=== PATIENT | female | born 1945 | race Caucasian/White ===

== ENCOUNTER 2017-10-09 12:48 | Observation (INO) | payer MEDICARE, OTHER ==
[2017-10-09] MEDS ORDERED: ASPIRIN 81 MG PO STA (14:15)
[2017-10-09] MEDS ORDERED: NITROGLYCERIN OINT 1 INCH/GM PACKET TOPICAL STA (14:15)
--- NOTE | 2017-10-09 14:35 | ED ---
General Adult HPI - General Chief complaint: Chest Pain Stated complaint: adnormal EKG-sent by Dr. Quinones Seen by Provider: 10/09/17 13:45 Source: patient, RN notes reviewed Mode of arrival: ambulatory Limitations: no limitations - History of Present Illness Initial comments: This is a 72-year-old female who presents emergency Department complaining of intermittent left-sided chest pain. Patient states sometimes the chest pain is so bad it radiates to her under her arm and makes her short of breath. Patient states she also gets diaphoretic in the head. Patient denies any nausea. Patient denies any vomiting or diarrhea. Patient states she is a smoker and she does have high blood pressure. Patient states she also had 2 stents in the past. Patient denies any recent fever chills. Patient states she has an occasional cough but that is typical for her. Patient denies any abdominal pain patient denies any recent injury or trauma. - Related Data Home Medications Medication Instructions Recorded Confirmed ALPRAZolam [Xanax] 0.5 mg PO BID PRN 10/09/17 10/09/17 Atenolol [Tenormin] 50 mg PO HS 10/09/17 10/09/17 Lisinopril [Zestril] 10 mg PO DAILY 10/09/17 10/09/17 Nitroglycerin Sl Tabs [Nitrostat] 0.4 mg SUBLINGUAL Q5M PRN 10/09/17 10/09/17 Simvastatin [Zocor] 40 mg PO HS 10/09/17 10/09/17 amLODIPine [Norvasc] 5 mg PO DAILY 10/09/17 10/09/17 Allergies Allergy/AdvReac Type Severity Reaction Status Date / Time Sulfa (Sulfonamide Allergy Unknown Verified 10/09/17 14:32 Antibiotics) Childhood Review of Systems ROS Statement: Those systems with pertinent positive or pertinent negative responses have been documented in the HPI. ROS Other: All systems not noted in ROS Statement are negative. Past Medical History Past Medical History: Coronary Artery Disease (CAD), Hyperlipidemia, Hypertension Additional Past Medical History / Comment(s): breast ca History of Any Multi-Drug Resistant Organisms: None Reported Past Surgical History: Bladder Surgery, Cholecystectomy, Heart Catheterization With Stent, Hysterectomy Additional Past Surgical History / Comment(s): right mastectomy, left lumpectomy Past Psychological History: No Psychological Hx Reported Smoking Status: Current every day smoker Past Alcohol Use History: None Reported Past Drug Use History: None Reported General Exam - General Exam Comments Initial Comments: GENERAL: Patient is well-developed and well-nourished. Patient is nontoxic and well- hydrated and is in mild distress. ENT: Neck is soft and supple. No significant lymphadenopathy is noted. Oropharynx is clear. Moist mucous membranes. Neck has full range of motion without eliciting any pain. EYES: The sclera were anicteric and conjunctiva were pink and moist. Extraocular movements were intact and pupils were equal round and reactive to light. Eyelids were unremarkable. PULMONARY: Unlabored respirations. Good breath sounds bilaterally. No audible rales rhonchi or wheezing was noted. CARDIOVASCULAR: There is a regular rate and rhythm without any murmurs gallops or rubs. ABDOMEN: Soft and nontender with normal bowel sounds. No palpable organomegaly was noted. There is no palpable pulsatile mass. SKIN: Skin is clear with no lesions or rashes and otherwise unremarkable. NEUROLOGIC: Patient is alert and oriented x3. Cranial nerves II through XII are grossly intact. Motor and sensory are also intact. Normal speech, volume and content. Symmetrical smile. MUSCULOSKELETAL: Normal extremities with adequate strength and full range of motion. No lower extremity swelling or edema. No calf tenderness. LYMPHATICS: No significant lymphadenopathy is noted PSYCHIATRIC: Normal psychiatric evaluation. Limitations: no limitations (Normal physical) Course Vital Signs 10/09/17 10/09/17 13:48 14:52 Temperature 98 F Pulse Rate 67 65 Respiratory 18 18 Rate Blood Pressure 137/73 148/64 O2 Sat by Pulse 93 L 94 L Oximetry Medical Decision Making - Medical Decision Making EKG shows normal sinus rhythm at a rate of 65 bpm RI interval is 162 QRS is 140 QTC is 470 QTC is 452. Patient's EKG shows no ST segment elevation or depression Chest x-ray shows no acute abnormality. I started the patient heparin because of her intermittent episodes of chest pain which are consistent with unstable angina. I spoke with [facility] hospitalist I admitted the patient and I wrote admitting orders and consult cardiology. - Lab Data Result diagrams: 10/09/17 14:05 10/09/17 14:05 Lab Results 10/09/17 10/09/17 10/09/17 Range/Units 14:05 14:05 14:05 WBC 6.2 (3.8-10.6) k/uL RBC 4.78 (3.80-5.40) m/uL Hgb 14.5 (11.4-16.0) gm/dL Hct 44.4 (34.0-46.0) % MCV 92.9 (80.0-100.0) fL MCH 30.3 (25.0-35.0) pg MCHC 32.6 (31.0-37.0) g/dL RDW 13.3 (11.5-15.5) % Plt Count 282 (150-450) k/uL Neutrophils % 59 % Lymphocytes % 29 % Monocytes % 5 % Eosinophils % 4 % Basophils % 0 % Neutrophils # 3.7 (1.3-7.7) k/uL Lymphocytes # 1.8 (1.0-4.8) k/uL Monocytes # 0.3 (0-1.0) k/uL Eosinophils # 0.2 (0-0.7) k/uL Basophils # 0.0 (0-0.2) k/uL PT (9.0-12.0) sec INR (<1.2) APTT (22.0-30.0) sec Sodium 142 (137-145) mmol/L Potassium 4.2 (3.5-5.1) mmol/L Chloride 111 H (98-107) mmol/L Carbon Dioxide 23 (22-30) mmol/L Anion Gap 8 mmol/L BUN 13 (7-17) mg/dL Creatinine 0.60 (0.52-1.04) mg/dL Est GFR (CKD-EPI)AfAm >90 (>60 ml/min/1.73 sqM) Est GFR (CKD-EPI)NonAf >90 (>60 ml/min/1.73 sqM) Glucose 88 (74-99) mg/dL Calcium 9.7 (8.4-10.2) mg/dL Magnesium 1.8 (1.6-2.3) mg/dL Total Bilirubin 0.4 (0.2-1.3) mg/dL AST 19 (14-36) U/L ALT 33 (9-52) U/L Alkaline Phosphatase 84 (38-126) U/L Total Creatine Kinase 59 (30-135) U/L CK-MB (CK-2) 1.7 (0.0-2.4) ng/mL CK-MB (CK-2) Rel Index 2.9 Troponin I <0.012 (0.000-0.034) ng/mL Total Protein 6.9 (6.3-8.2) g/dL Albumin 4.2 (3.5-5.0) g/dL 10/09/17 Range/Units 14:05 WBC (3.8-10.6) k/uL RBC (3.80-5.40) m/uL Hgb (11.4-16.0) gm/dL Hct (34.0-46.0) % MCV (80.0-100.0) fL MCH (25.0-35.0) pg MCHC (31.0-37.0) g/dL RDW (11.5-15.5) % Plt Count (150-450) k/uL Neutrophils % % Lymphocytes % % Monocytes % % Eosinophils % % Basophils % % Neutrophils # (1.3-7.7) k/uL Lymphocytes # (1.0-4.8) k/uL Monocytes # (0-1.0) k/uL Eosinophils # (0-0.7) k/uL Basophils # (0-0.2) k/uL PT 9.8 (9.0-12.0) sec INR 1.0 (<1.2) APTT 23.5 (22.0-30.0) sec Sodium (137-145) mmol/L Potassium (3.5-5.1) mmol/L Chloride (98-107) mmol/L Carbon Dioxide (22-30) mmol/L Anion Gap mmol/L BUN (7-17) mg/dL Creatinine (0.52-1.04) mg/dL Est GFR (CKD-EPI)AfAm (>60 ml/min/1.73 sqM) Est GFR (CKD-EPI)NonAf (>60 ml/min/1.73 sqM) Glucose (74-99) mg/dL Calcium (8.4-10.2) mg/dL Magnesium (1.6-2.3) mg/dL Total Bilirubin (0.2-1.3) mg/dL AST (14-36) U/L ALT (9-52) U/L Alkaline Phosphatase (38-126) U/L Total Creatine Kinase (30-135) U/L CK-MB (CK-2) (0.0-2.4) ng/mL CK-MB (CK-2) Rel Index Troponin I (0.000-0.034) ng/mL Total Protein (6.3-8.2) g/dL Albumin (3.5-5.0) g/dL Disposition Clinical Impression: Unstable angina pectoris Disposition: ADMITTED IP TO THIS HOSP Referrals: Rosemary Raphael MD [Primary Care Provider] - 1-2 days Time of Disposition: 16:06
[2017-10-09 14:37] LABS: Basophils % (A) 0 %; Eosinophils # (A) 0.2 k/uL (0-0.7); Eosinophils % (A) 4 %; HCT 44.4 % (34.0-46.0); HGB 14.5 gm/dL (11.4-16.0); Lymphocytes # (A) 1.8 k/uL (1.0-4.8); Lymphocytes % (A) 29 %; MCH 30.3 pg (25.0-35.0); MCHC 32.6 g/dL (31.0-37.0); MCV 92.9 fL (80.0-100.0); Mean Platelet Volume 6.3; Monocytes # (A) 0.3 k/uL (0-1.0); Monocytes % (A) 5 %; Neutrophils # (A) 3.7 k/uL (1.3-7.7); Neutrophils % (A) 59 %; Platelet Count 282 k/uL (150-450); RBC 4.78 m/uL (3.80-5.40); RDW 13.3 % (11.5-15.5); WBC 6.2 k/uL (3.8-10.6)
[2017-10-09 14:41] LABS: Partial Thromboplastin Time 23.5 sec (22.0-30.0); Prothrombin Time 9.8 sec (9.0-12.0)
[2017-10-09 14:48] LABS: ALT 33 U/L (9-52); AST 19 U/L (14-36); Albumin 4.2 g/dL (3.5-5.0); Alkaline Phosphatase 84 U/L (38-126); Anion Gap 8 mmol/L; Blood Urea Nitrogen 13 mg/dL (7-17); Calcium 9.7 mg/dL (8.4-10.2); Carbon Dioxide 23 mmol/L (22-30); Chloride 111 mmol/L (98-107); Glucose 88 mg/dL (74-99); Magnesium 1.8 mg/dL (1.6-2.3); Potassium 4.2 mmol/L (3.5-5.1); Sodium 142 mmol/L (137-145); Total Bilirubin 0.4 mg/dL (0.2-1.3); Total Protein 6.9 g/dL (6.3-8.2)
[2017-10-09 14:53] LABS: Creatine Kinase 59 U/L (30-135)
--- NOTE | 2017-10-09 14:56 | XR ---
EXAMINATION TYPE: XR chest 2V DATE OF EXAM: 10/09/2017 COMPARISON: 03/25/2014 HISTORY: 72-year-old female with chest pain TECHNIQUE: PA and lateral views FINDINGS: Heart upper limits of normal in size. Aorta and pulmonary vasculature within normal limits. Mild inte rstitial prominence has chronic appearance. Calcified granuloma right upper lobe unchanged. No consol idation or pleural effusion. Moderate degenerative disc disease throughout. IMPRESSION: Chronic changes with a calcified right upper lobe granuloma. No acute process seen.
[2017-10-09 15:06] LABS: Creatine Kinase MB 1.7 ng/mL (0.0-2.4); Troponin I <0.012 ng/mL (0.000-0.034)
[2017-10-09] MEDS ORDERED: HEPARIN SODIUM,PORCINE 5,000 UNIT/ML 1 ML VIAL IV ONE (15:58)
[2017-10-09] MEDS ORDERED: HEPARIN SOD,PORK IN 0.45% NACL 25,000 UNIT in 0.45% NACL 1 500ML.BAG IV SCH (16:00)
[2017-10-09] MEDS ORDERED: NITROGLYCERIN SL TABS 0.4 MG TAB SUBLINGUAL PRN (16:06)
[2017-10-09] MEDS: NITROGLYCERIN OINT 1 INCH/GM PACKET TOPICAL SCH (19:33)
[2017-10-09 22:50] LABS: Creatine Kinase 63 U/L (30-135)
[2017-10-09 23:03] LABS: Creatine Kinase MB 1.8 ng/mL (0.0-2.4); Troponin I <0.012 ng/mL (0.000-0.034)
[2017-10-10] MEDS ORDERED: ALPRAZolam 0.5 MG TAB PO PRN (00:02)
[2017-10-10] MEDS ORDERED: TEMAZEPAM 15 MG CAP PO PRN (00:03)
[2017-10-10] MEDS ORDERED: ACETAMINOPHEN TAB 500 MG TAB PO PRN (00:03)
[2017-10-10] MEDS ORDERED: HYDROcodone/APAP 5-325MG 1 EACH TAB PO PRN (00:03)
--- NOTE | 2017-10-10 01:29 | HP ---
HISTORY AND PHYSICAL DATE OF SERVICE: 10/09/2017 CHIEF COMPLAINTS: Chest pain. HISTORY OF PRESENT ILLNESS: This 79-year-old woman with a past medical history of CAD, hypertension, hyperlipidemia, history of breast cancer, being followed by Dr. Raphael in the outpatient setting, was complaining of chest pain for the last several days. Patient had pain on and off in the left side of the chest under the breast and radiated to the left axilla. The patient had one episode of diaphoresis also. The patient came to [facility] and was admitted for further evaluation and treatment. The cardiac enzymes are negative so far. The initial EKG showed wide-complex QRSs. The patient had a previous history of 2 stents also. There is no history of fevers or rigors. No history of headache, loss of consciousness, or seizures. PAST MEDICAL HISTORY: History of CAD stent, hypertension, hyperlipidemia, history of breast cancer. HOME MEDICATIONS: 1. Norvasc 5 mg p.o. daily. 2. Zocor 40 mg at bedtime. 3. Nitrostat 0.4 mg p.r.n. 4. Zestril 10 mg p.o. daily. 5. Tenormin 50 mg at bedtime. 6. Xanax 0.5 mg p.o. b.i.d. p.r.n. ALLERGIES: SULFA. FAMILY HISTORY: No history of heart disease or strokes in the family. SOCIAL HISTORY: No history of alcohol. History of current smoking, less than a pack daily. REVIEW OF SYSTEMS: ENT: No diminished vision. CARDIOVASCULAR: As mentioned earlier. RESPIRATORY SYSTEM: As mentioned earlier. GI: No nausea. : No dysuria. NERVOUS SYSTEM: No numbness or weakness. ALLERGY: No asthma or hayfever. MUSCULOSKELETAL: As mentioned earlier. ENDOCRINE: No history of diabetes or hypothyroidism. CONSTITUTIONAL: As mentioned earlier. PSYCHIATRY: As mentioned earlier. PHYSICAL EXAM: Patient is alert, oriented x3. Pulse 68, blood pressure 132/60, respiration 18, temperature 98.4, pulse ox 98% on 2 L. HEENT: Conjunctivae normal. Oral mucosa moist. NECK: No jugular venous distention. No lymph nodes palpable. CARDIOVASCULAR: S1 and S2 muffled. RESPIRATORY: Breath sounds diminished in the bases. A few rhonchi. No crackles. ABDOMEN: Soft, nontender. No mass palpable. EXTREMITIES: Legs no edema, no swelling. NERVOUS SYSTEM: Higher functions as mentioned. Moves all 4 limbs. No focal motor deficits. LYMPHATICS: No lymph nodes palpable in the neck or axillae. SKIN: No ulcers or rashes. LABS: WBC 6, hemoglobin is 14.5. INR is 1. Sodium is 142, potassium 4.2. ASSESSMENT: 1. Chest pain, possible unstable angina. 2. History of coronary artery disease with stents. 3. Hypertension. 4. Hyperlipidemia. 5. History of breast cancer. 6. History of cholecystectomy. 7. History of continued ongoing nicotine dependence. RECOMMENDATIONS AND DISCUSSION: This 75-year-old woman who presents with multiple complex medical issues, will monitor the patient closely, continue the current management and symptomatic treatment. Will initiate the home medications. The patient will be n.p.o. after midnight. Cardiology consultation. Possible stress test in the morning. Rule out myocardial infarction. Guarded prognosis because of multiple complex medical issues. The smoking cessation has been advised. The patient understands. Further recommendations to follow. MMODL / IJN: [id number] /
[2017-10-10 02:26] LABS: Cholesterol 142 mg/dL (<200); HDL Cholesterol 36 mg/dL (40-60); LDL Cholesterol,Calculated 40 mg/dL (0-99); Triglycerides 329 mg/dL (<150)
[2017-10-10 02:43] LABS: Creatine Kinase 58 U/L (30-135)
[2017-10-10 02:56] LABS: Creatine Kinase MB 1.7 ng/mL (0.0-2.4); Troponin I <0.012 ng/mL (0.000-0.034)
[2017-10-10 04:32] VITALS: RESP 18; TEMP 97.8
[2017-10-10] MEDS: NITROGLYCERIN OINT 1 INCH/GM PACKET TOPICAL SCH ×2 (04:56→06:36)
[2017-10-10] MEDS ORDERED: PANTOPRAZOLE 40 MG TABLET PO SCH (07:30)
[2017-10-10 08:32] VITALS: BP 154/70; PULSE 65
--- NOTE | 2017-10-10 08:33 | P.CRDCN ---
History of Present Illness Consult date: 10/10/17 Chief complaint: Chest pain History of present illness: This is a pleasant 72-year-old female patient who was a patient of Dr. Pacheco in the past with a past medical history significant for coronary artery disease and prior stenting of the RCA and left circumflex in 2007 as well as hypertension, dyslipidemia, and history of smoking, was referred by her primary care physician to the hospital because of abnormal EKG. The patient went to see her primary care physician because she was having some sinus infection. She mentioned to her about episodes of chest discomfort and an EKG was performed and showed sinus rhythm with intraventricular conduction delay. That was concerning to the primary care physician and the patient was referred to the hospital. The patient describes intermittent episodes of atypical chest discomfort. She described them as twinges in the mid of the chest without any radiation to the arm or neck or shoulders and without any associated symptoms of shortness of breath, dizziness or lightheadedness, nausea, or syncope. Each episode lasts only for few minutes. Is a sharp kind of discomfort overall. Does not seems to be exertional. Beside that the patient described intermittent episodes of sweating. The EKG showed sinus rhythm with incomplete left bundle branch block. The cardiac enzymes were checked and came in to be unremarkable. I discussed with the patient the possible need for stress test to rule out any severe underlying coronary artery disease giving her history. She expressed wishes that she would like to go home patient she has been up and around walking in the hallway and I feel that the patient can be discharged home if she wants to. Past Medical History Past Medical History: Coronary Artery Disease (CAD), Hyperlipidemia, Hypertension Additional Past Medical History / Comment(s): breast ca History of Any Multi-Drug Resistant Organisms: None Reported Past Surgical History: Bladder Surgery, Cholecystectomy, Heart Catheterization With Stent, Hysterectomy Additional Past Surgical History / Comment(s): right mastectomy, left lumpectomy Past Psychological History: No Psychological Hx Reported Smoking Status: Current every day smoker Past Alcohol Use History: None Reported Past Drug Use History: None Reported Medications and Allergies Home Medications Medication Instructions Recorded Confirmed Type ALPRAZolam [Xanax] 0.5 mg PO BID PRN 10/09/17 10/09/17 History Atenolol [Tenormin] 50 mg PO HS 10/09/17 10/09/17 History Lisinopril [Zestril] 10 mg PO DAILY 10/09/17 10/09/17 History Nitroglycerin Sl Tabs [Nitrostat] 0.4 mg SUBLINGUAL Q5M PRN 10/09/17 10/09/17 History Simvastatin [Zocor] 40 mg PO HS 10/09/17 10/09/17 History amLODIPine [Norvasc] 5 mg PO DAILY 10/09/17 10/09/17 History Allergies Allergy/AdvReac Type Severity Reaction Status Date / Time Sulfa (Sulfonamide Allergy Unknown Verified 10/09/17 14:32 Antibiotics) Childhood Physical Exam Vitals: Vital Signs Temp Pulse Resp BP Pulse Ox 10/10/17 06:37 62 18 119/56 94 L 10/10/17 04:31 97.8 F 60 18 141/63 93 L 10/09/17 22:54 98.6 F 62 17 176/81 97 10/09/17 20:55 98.4 F 68 18 132/66 95 10/09/17 19:19 71 18 136/70 96 10/09/17 18:45 72 16 124/60 92 L 10/09/17 18:00 70 169 H 125/85 92 L 10/09/17 16:52 76 16 138/62 96 10/09/17 16:08 64 16 120/56 94 L 10/09/17 14:52 65 18 148/64 94 L 10/09/17 13:48 98 F 67 18 137/73 93 L - Constitutional General appearance: no acute distress - Respiratory Respiratory: bilateral: CTA - Cardiovascular Rhythm: regular Heart sounds: normal: S1, S2 Results 10/09/17 14:05 10/09/17 14:05 Cardiac Enzymes 10/09/17 10/09/17 10/09/17 Range/Units 14:05 14:05 22:16 AST 19 (14-36) U/L CK-MB (CK-2) 1.7 1.8 (0.0-2.4) ng/mL Troponin I <0.012 <0.012 (0.000-0.034) ng/mL 10/10/17 Range/Units 02:11 AST (14-36) U/L CK-MB (CK-2) 1.7 (0.0-2.4) ng/mL Troponin I <0.012 (0.000-0.034) ng/mL Coagulation 10/09/17 Range/Units 14:05 PT 9.8 (9.0-12.0) sec APTT 23.5 (22.0-30.0) sec Lipids 10/10/17 Range/Units 02:11 Triglycerides 329 H (<150) mg/dL Cholesterol 142 (<200) mg/dL HDL Cholesterol 36 L (40-60) mg/dL CBC 10/09/17 Range/Units 14:05 WBC 6.2 (3.8-10.6) k/uL RBC 4.78 (3.80-5.40) m/uL Hgb 14.5 (11.4-16.0) gm/dL Hct 44.4 (34.0-46.0) % Plt Count 282 (150-450) k/uL Comprehensive Metabolic Panel 10/09/17 Range/Units 14:05 Sodium 142 (137-145) mmol/L Potassium 4.2 (3.5-5.1) mmol/L Chloride 111 H (98-107) mmol/L Carbon Dioxide 23 (22-30) mmol/L BUN 13 (7-17) mg/dL Creatinine 0.60 (0.52-1.04) mg/dL Glucose 88 (74-99) mg/dL Calcium 9.7 (8.4-10.2) mg/dL AST 19 (14-36) U/L ALT 33 (9-52) U/L Alkaline Phosphatase 84 (38-126) U/L Total Protein 6.9 (6.3-8.2) g/dL Albumin 4.2 (3.5-5.0) g/dL Current Medications Generic Name Dose Route Start Last Admin Trade Name Freq PRN Reason Stop Dose Admin Acetaminophen 500 mg 10/10/17 00:03 Tylenol Tab PO Q6HR PRN Fever and/ or Pain Hydrocodone Bitart/Acetaminophen 1 each 10/10/17 00:03 [place] 5-325 PO Q6HR PRN Pain Alprazolam 0.5 mg 10/10/17 00:02 Xanax PO BID PRN Anxiety Amlodipine Besylate 5 mg 10/10/17 09:00 Norvasc PO DAILY SEBASTIAN Aspirin 325 mg 10/10/17 09:00 Aspirin PO DAILY SEBASTIAN Atenolol 50 mg 10/10/17 21:00 Tenormin PO HS SEBASTIAN Atorvastatin Calcium 40 mg 10/10/17 21:00 Lipitor PO HS SEBASTIAN Heparin Sodium/Sodium Chloride 500 mls @ 19.48 mls/hr 10/09/17 16:00 16:50 25,000 unit/ Sodium Chloride IV 12 units/kg/hr .Q24H SEBASTIAN 19.48 mls/hr Administration Protocol 12 UNITS/KG/HR Lisinopril 10 mg 10/10/17 09:00 Zestril PO DAILY SEBASTIAN Nicotine 1 patch 10/10/17 09:00 10/10/17 08:21 Habitrol 14mg/24hr Patch TRANSDERM Not Given DAILY SEBASTIAN Nitroglycerin 1 inch 10/09/17 18:00 10/10/17 06:36 Nitro-Bid Oint TOPICAL 1 inch Q6HR SEBASTIAN Administration Nitroglycerin 0.4 mg 10/09/17 16:06 Nitrostat SUBLINGUAL Q5M PRN Chest Pain Pantoprazole Sodium 40 mg 10/10/17 07:30 Protonix PO AC-BRKFST SEBASTIAN Temazepam 15 mg 10/10/17 00:03 Restoril PO HS PRN Insomnia 10/09/17 14:05 10/09/17 14:05 Assessment and Plan Assessment: Assessment #1 intermittent episodes of atypical chest discomfort #2 coronary artery disease and prior stenting of the RCA and left circumflex #3 history of breast cancer #4 history of smoking Plan #1 smoking cessation was discussed with her #2 a stress test need to be done. The patient would like to go home and have the test as an outpatient #3 from the cardiovascular standpoint of view, she can be discharged home. Thank you for allowing us participate in her care.
[2017-10-10] MEDS ORDERED: NICOTINE 14MG/24HR PATCH TRANSDERM SCH (09:00)
[2017-10-10] MEDS ORDERED: ASPIRIN 325 MG TAB PO SCH (09:00)
[2017-10-10] MEDS ORDERED: amLODIPine 5 MG TAB PO SCH (09:00)
[2017-10-10] MEDS ORDERED: LISINOPRIL 10 MG TAB PO SCH (09:00)
--- NOTE | 2017-10-10 12:12 | DS ---
DISCHARGE SUMMARY FINAL DIAGNOSES: 1. Chest pain, possible unstable angina; myocardial infarction ruled out. 2. History of coronary artery disease, stent. 3. Hypertension. 4. Hyperlipidemia. 5. History of breast cancer. 6. History of cholecystectomy. 7. History of continuing ongoing nicotine dependence. DISCHARGE DISPOSITION: The patient will be discharged in stable condition with guarded prognosis. Cardiology cleared the patient. HISTORY OF PRESENT ILLNESS: This 72-year-old woman with a past medical history of multiple medical problems, admitted with chest pain, myocardial infarction ruled out. Cardiology, Dr. Leiva, saw the patient and recommended outpatient stress test as the patient expressed wishes to go home. On exam, vitals are stable. CARDIOVASCULAR: S1, S2, muffled. ABDOMEN: Soft. NERVOUS SYSTEM: No focal deficits. DISCHARGE ADVICE: 1. Diet is cardiac. 2. Activity limited until followup. 3. Follow up with Dr. Leiva with outpatient stress test. 4. Follow up with Dr. Raphael as recommended. MEDICATIONS: Medications will be: 1. Xanax 0.5 b.i.d. p.r.n. 2. Norvasc 5 mg p.o. daily. 3. Tenormin 50 mg at bedtime. 4. Zestril 10 mg p.o. daily. 5. Nitrostat 0.4 mg sublingual p.r.n. 6. Zocor 40 mg at bedtime. 7. Habitrol 14 daily. 8. Ecotrin aspirin 81 mg p.o. daily. Once again, the patient will be discharged in a stable condition with guarded prognosis. MMODL / IJN: [id number] /
[2017-10-10] MEDS ORDERED: ATORVASTATIN 20 MG TAB PO SCH (21:00)
[2017-10-10] MEDS ORDERED: ATENOLOL 50 MG TAB PO SCH (21:00)
== END 2017-10-10 10:01 | disposition home or self-care (01) ==
LOC: EC 12:48 → 3OBS 16:23
PROVIDERS: ADMIT Hospitalist; ATTEND Hospitalist
DX: R07.89 Other chest pain (principal); R94.31 Abnormal electrocardiogram [ECG] [EKG]; I25.110 Atherosclerotic heart disease of native coronary artery with unstable angina pectoris; R06.02 Shortness of breath; R61 Generalized hyperhidrosis; I10 Essential (primary) hypertension; F17.210 Nicotine dependence, cigarettes, uncomplicated; E78.5 Hyperlipidemia, unspecified; Z79.899 Other long term (current) drug therapy; Z88.2 Allergy status to sulfonamides; Z95.5 Presence of coronary angioplasty implant and graft; Z85.3 Personal history of malignant neoplasm of breast; Z90.49 Acquired absence of other specified parts of digestive tract; Z90.710 Acquired absence of both cervix and uterus; Z90.11 Acquired absence of right breast and nipple
CPT/HCPCS: 99285 ×2; 96365 ×2; 96366 ×17; 96376 ×2; 36415; 93005; 80061; 80053; 82550 ×2; 82553 ×2; 83735; 84484 ×2; 85025; 85610; 85730; 71046; G0378 ×2; J1644 ×2

== ENCOUNTER → 2018-04-17 | Outpatient (CLI) | payer MEDICARE, OTHER ==
--- NOTE | 2018-04-18 10:19 | MM ---
Reason for exam: additional evaluation requested from prior study. Last mammogram was performed 2 years and 7 months ago. History: Patient is postmenopausal, has history of endometrial cancer at age 27, and has history of breast cancer at age 24. Malignant mastectomy of the right breast, January 01, 2008. Malignant right mammotome panel of the right breast, November 21, 2007. Saline implant in the right breast, 2007. Reconstruction of the right breast, 2007. Lumpectomy of the left breast, 1970. Physical Findings: Nurse did not find any significant physical abnormalities on exam. MG 3D Diag Mammo W/Cad LT CC and MLO view(s) were taken of the left breast. Prior study comparison: September 23, 2015, left breast MG 3d diag mammo w/cad LT. September 01, 2011, mammogram, performed at [facility]. There are scattered fibroglandular densities. Course calcifications with associated focal asymmetry approximately 10 o'clock middle depth. The focal asymmetry is more defined and largely new from 2008. These results were verbally communicated with the patient and result sheet given to the patient on 04/17/18. ASSESSMENT: Incomplete: need additional imaging evaluation, BI-RAD 0 RECOMMENDATION: Ultrasound of the left breast. (10 o'clock)
--- NOTE | 2018-04-18 10:20 | USB ---
Reason for exam: additional evaluation requested from abnormal screening. History: Patient is postmenopausal, has history of endometrial cancer at age 27, and has history of breast cancer at age 24. Malignant mastectomy of the right breast, January 01, 2008. Malignant right mammotome panel of the right breast, November 21, 2007. Saline implant in the right breast, 2007. Reconstruction of the right breast, 2007. Lumpectomy of the left breast, 1970. US Breast Limited LT Left limited breast ultrasound including focal area of concern, retroareolar and axilla demonstrates a 8 x 4 x 8mm irregular, solid, hypoechoic lesion at 10 o'clock. Scanned 9-12 o'clock and axilla. These results were verbally communicated with the patient and result sheet given to the patient on 04/17/18. ASSESSMENT: Suspicious, BI-RAD 4 RECOMMENDATION: Surgical consultation and ultrasound core biopsy of the left breast. Called Dr. Raphael with mammographic findings and has scheduled an appointment for the patient for 05/04/18 at 9:[address] Keller. Biopsy scheduled for 05/04/18 at 11:30. PRELIMINARY REPORT CALLED AND FAXED TO DR. KELLER ON 04/18/18.
== END | disposition home or self-care (01) ==
LOC: RADMAMWWP 15:06
PROVIDERS: ATTEND Internal Medicine
DX: Z08 Encounter for follow-up examination after completed treatment for malignant neoplasm (principal); R92.8 Other abnormal and inconclusive findings on diagnostic imaging of breast; Z85.3 Personal history of malignant neoplasm of breast
CPT/HCPCS: 77065; 76642; G0279; 77061

== ENCOUNTER → 2018-05-04 | Outpatient (CLI) | payer MEDICARE, OTHER ==
[2018-05-04 09:40] VITALS: BP 132/62; PULSE 60; RESP 18; TEMP 96.7; BMI 30.3
--- NOTE | 2018-05-04 09:57 | P.GSHP ---
History of Present Illness H&P Date: 05/04/18 Chief Complaint: abnormal mammogram/ultrasound Radha is a 72-year-old white female who presents for last evaluation. She had a routine mammogram April 17 which revealed an area of increased density in the left breast. She subsequently had an ultrasound which revealed an 8 x 8 mm irregular solid lesion which was considered BIRADS 4 and ultrasound-guided core biopsy is recommended. The lesion is at 10:00 in the left breast. The patient is status post right mastectomy, with subpectoral reconstruction approximately 2008. She had 2 lymph nodes sampled she states and did not have any radiation therapy. She did not use any hormonal therapy nor did she have any chemotherapy. She has had no evidence of any recurrence. She has not felt anything in her breast at this time. She had a lumpectomy of the left breast in her 20's. She was told it was cancer but had no further treatment. She does not complain of any nipple discharge or skin changes. She has no history of any trauma or infection to the breast. Family History: maternal aunt: ? ovarian cancer patient: uterine cancer, breast cancer Hormonal History: menarche: 11 : 7, 5 children, breast fed: no, first born at 19 menopause: hysterectomy at 27, cancer of the uterus, did not take ovaries BCP: 4 years hormones: none Past surgical history: 1. Hysterectomy 2. Mastectomy of the right breast with subpectoral reconstruction 3. Lumpectomy on the left breast 4. gallbladder 5. heart stents times 2007 7. bladder suspension Past Medical History: 1. Coronary artery disease/stents placed 2. Hypertension 3. High cholesterol Social History: smoke: 1 PPD/2 days (over 30 years) alcohol: none drugs: none - Constitutional Constitutional: Reports sweats - EENT Eyes: bilateral blurred vision, bilateral pain Ears: bilateral: decreased hearing, tinnitus Ears, nose, mouth and throat: Reports headache - Breasts Breasts: bilateral: as per HPI - Cardiovascular Comment: cardiac stents Cardiovascular: Reports high blood pressure - Respiratory Comment: smoker asthma - Gastrointestinal Gastrointestinal: Reports constipation, Reports diarrhea - Genitourinary (Female) Comment: bladder suspension Genitourinary: Reports hematuria, Reports kidney stones - Menstruation Menstruation: Reports post hysterectomy - Musculoskeletal Comment: arthritis - Integumentary Integumentary: Denies pruritus, Denies rash - Neurological Neurological: Denies numbness, Denies weakness - Psychiatric Psychiatric: Reports anxiety, Denies depression - Endocrine Endocrine: Reports fatigue - Hematologic/Lymphatic Comment: none - Allergic/Immunologic Allergic/Immunologic: Reports seasonal allergies Past Medical History Past Medical History: Coronary Artery Disease (CAD), Cancer, Hyperlipidemia, Hypertension Additional Past Medical History / Comment(s): breast ca right breast 2007, hx. uterine ca History of Any Multi-Drug Resistant Organisms: None Reported Past Surgical History: Bladder Surgery, Cholecystectomy, Heart Catheterization With Stent, Hysterectomy Additional Past Surgical History / Comment(s): right mastectomy 2007, left lumpectomy 1970 Past Psychological History: Anxiety Smoking Status: Current every day smoker Past Alcohol Use History: Rare Past Drug Use History: None Reported Medications and Allergies Home Medications Medication Instructions Recorded Confirmed Type ALPRAZolam [Xanax] 0.5 mg PO BID PRN 10/09/17 04/24/18 History Atenolol [Tenormin] 50 mg PO HS 10/09/17 04/24/18 History Lisinopril [Zestril] 10 mg PO DAILY 10/09/17 04/24/18 History Nitroglycerin Sl Tabs [Nitrostat] 0.4 mg SUBLINGUAL Q5M PRN 10/09/17 04/24/18 History Simvastatin [Zocor] 40 mg PO HS 10/09/17 04/24/18 History amLODIPine [Norvasc] 5 mg PO DAILY 10/09/17 04/24/18 History Gemfibrozil [Lopid] 600 mg PO AC-BID 04/24/18 04/24/18 History Allergies Allergy/AdvReac Type Severity Reaction Status Date / Time Sulfa (Sulfonamide Allergy Unknown Verified 05/04/18 09:30 Antibiotics) Childhood diazepam [From Valium] AdvReac Unknown Verified 05/04/18 09:30 Surgical - Exam Blood pressure 132/62 Temperature 96.7 Pulse: 60 Respirations: 18 O2 sat: 93 BMI 30.4 - General obese - Eyes normal ocular movement - ENT no hearing loss, no congestion - Neck no masses, trachea midline - Respiratory Decreased breath sounds at the bases - Cardiovascular Rhythm: regular Heart Sounds: normal: S1, S2 - Abdomen No guarding or rebound Well-healed scars from prior surgery Abdomen: soft - Integumentary Normal turgor Well-healed scars - Neurologic no disoriented, no combative - Musculoskeletal normal gait - Psychiatric oriented to time, oriented to person, oriented to place, speech is normal, memory intact Breast examination Right breast: Patient status post mastectomy with reconstruction, no evidence of recurrent disease, well-healed scars Right axilla: No adenopathy of concern Left breast colon was a scar from prior surgery, multiple positional exam no discrete dominant masses or nodules of concern Left nipple is slightly inverted Left axilla: No adenopathy of concern Results Results of mammogram and ultrasound reviewed Assessment and Plan Assessment: Impression: 1. Personal history of right breast cancer 2. Personal history of uterine cancer 3. Family history of cancer 4. Abnormal mammogram and ultrasound of the left breast 5. Hypertension 6. Nicotine dependence 7. High cholesterol 8. Asthma 9. Slightly inverted left breast nipple Plan: 1. Ultrasound-guided left breast core biopsy 2. Medical management of medical conditions CC: DR. Raphael
== END ==
LOC: WWCWWP 08:58
PROVIDERS: ATTEND Surgery
DX: Z53.9 Procedure and treatment not carried out, unspecified reason (principal)

== ENCOUNTER → 2018-05-04 | Day surgery (SDC) | payer MEDICARE, OTHER ==
[2018-05-04 11:03] VITALS: RESP 16; BMI 29.8
[2018-05-04 12:45] VITALS: BP 153/76; PULSE 60; TEMP 97.9
--- NOTE | 2018-05-04 16:44 | USB ---
EXAMINATION TYPE: US biopsy breast VAD LT DATE OF EXAM: 05/04/2018 CLINICAL HISTORY: R92.8 ABNORMAL MAMMOGRAM. TECHNIQUE: Ultrasound guided core biopsy of left breast. COMPARISON: 04/17/2018 FINDINGS: The procedure of ultrasound guided core biopsy was explained to the patient. Benefits, alternatives, and risks were discussed. An informed consent was then obtained. A timeout was performed. The patient was placed in supine positioning for imaging and for the procedure. The overlying skin was prepped and draped in usual sterile fashion. Lidocaine buffered with bicarbonate was used as anesthetic into the skin and subcutaneous tissue up to area of concern in the left breast. A wilda was made with surgical scalpel. Under ultrasound guidance, a 12-gauge vacuum assisted biopsy gun device was used to obtain 5 core samples. Following this, a biopsy clip was left in lesion. The patient tolerated the procedure well without any immediate complication. The patient was kept in the radiology department for short stay after the procedure and then discharged home in stable condition. Postprocedure mammogram ordered by the physician was performed. Clip is in the upper inner aspect left breast anterior position. IMPRESSION: 1. Successful ultrasound-guided core biopsy is lesion. Recommendations: 1. Recommendations are pending pathology results. Pathology Results: High Risk LEFT BREAST, 10:00, ULTRASOUND GUIDED CORE BIOPSY: Sclerotic intraductal papilloma with calcifications and metaplastic changes. See note. Recommendation Surgical consult of the left breast. BETSY
--- NOTE | 2018-05-04 16:48 | MM ---
EXAMINATION TYPE: US biopsy breast VAD LT DATE OF EXAM: 05/04/2018 CLINICAL HISTORY: R92.8 ABNORMAL MAMMOGRAM. TECHNIQUE: Ultrasound guided core biopsy of left breast. COMPARISON: 04/17/2018 FINDINGS: The procedure of ultrasound guided core biopsy was explained to the patient. Benefits, alt ernatives, and risks were discussed. An informed consent was then obtained. A timeout was performed. The patient was placed in supine positioning for imaging and for the procedure. The overlying skin w as prepped and draped in usual sterile fashion. Lidocaine buffered with bicarbonate was used as anes thetic into the skin and subcutaneous tissue up to area of concern in the left breast. A wilda was ma de with surgical scalpel. Under ultrasound guidance, a 12-gauge vacuum assisted biopsy gun device was used to obtain 5 core teodoro ples. Following this, a biopsy clip was left in lesion. The patient tolerated the procedure well without any immediate complication. The patient was kept in the radiology department for short stay after the procedure and then discharged home in stable condi tion. Postprocedure mammogram ordered by the physician was performed. Clip is in the upper inner aspect lef t breast anterior position. IMPRESSION: 1. Successful ultrasound-guided core biopsy is lesion. Recommendations: 1. Recommendations are pending pathology results.
== END ==
LOC: RADUSWWP 09:02
PROVIDERS: ATTEND Surgery
DX: D24.2 Benign neoplasm of left breast (principal); Z85.3 Personal history of malignant neoplasm of breast
CPT/HCPCS: 88305; 88342; 88341; 77065; 19083; A4648; J2001

== ENCOUNTER → 2018-05-10 | Outpatient (CLI) | payer MEDICARE, OTHER ==
[2018-05-10 11:18] VITALS: BP 164/73; PULSE 62; RESP 18; TEMP 96.9; BMI 31.1
--- NOTE | 2018-05-10 11:58 | P.PN ---
Subjective Progress Note Date: 05/10/18 Principal diagnosis: Status post ultrasound-guided core biopsy of the left breast Radha is a 72-year-old white female who is status post ultrasound-guided core biopsy and 3119. Pathology revealed a sclerotic intraductal papilloma with calcifications and metaplastic changes. The patient is status post right mastectomy with subpectoral reconstruction in 2008. She had 2 lymph node sampling states did not have any radiation therapy. She did not have any hormonal or chemotherapy. The surgery was done at [facility] which is now [facility]. The patient has no complaints related to the ultrasound-guided core biopsy. Family history: 1. Maternal aunt: Questionable ovarian cancer 2. Patient: Uterine cancer, breast cancer 3. Brother: Prostate cancer 4. Son: Testicular cancer 5. 2 sons and brother with melanoma Past surgical history: 1. Hysterectomy 2. Mastectomy of the right breast with subpectoral reconstruction 3. Lumpectomy of the left breast 4. Cholecystectomy 5. Cardiac stents 2007 6. Bladder suspension Past medical history: 1. Coronary artery disease/stents placed 2. Hypertension 3. High cholesterol Review of systems: HEENT bilateral blurred vision bilateral eye pain Years bilateral decreased hearing and ringing in her ears Headaches at times Breasts: Bilateral as per HPI Heart: Cardiac stents and hypertension Respiratory: Smoker, asthma GI: Constipation intermittent diarrhea : Hematuria at times, reports kidney stones, follows with Dr. Raphael Musculoskeletal: Arthritis Integument: Denies pruritus denies rash Neurologic: Denies numbness denies weakness Psychiatric: Reports anxiety denies depression Endocrine: Reports fatigue Hematologic: Negative, she does not take any blood thinners Objective - Vital Signs Vital signs: Vital Signs Temp 96.9 F L 05/10/18 11:10 Pulse 62 05/10/18 11:10 Resp 18 05/10/18 11:10 BP 164/73 05/10/18 11:10 Pulse Ox 96 05/10/18 11:10 Intake & Output 05/09/18 05/10/18 05/10/18 18:59 06:59 18:59 Weight 77.111 kg - Exam BMI 31.1 - Constitutional General appearance: Present: obese - EENT Eyes: Present: EOMI ENT: Present: hearing grossly normal - Respiratory Respiratory: - Cardiovascular Rhythm: regular Heart sounds: - Musculoskeletal Musculoskeletal: Present: gait normal - Psychiatric Psychiatric: Present: A&O x's 3, appropriate affect, intact judgment & insight - Additional findings Additional findings: breast: The biopsy sites clean and dry Mild ecchymosis noted periareolar region No evidence of hematoma Assessment and Plan Assessment: Impression: 1. Status post ultrasound-guided core biopsy left breast pathology consistent with intraductal papilloma 2. Personal history of right breast cancer 2. Personal history of uterine cancer 2. Family history of cancer 4. Abnormal mammogram and ultrasound of the left breast 5. Hypertension 6. Nicotine dependence 7. High cholesterol 8. Asthma 9. Slightly inverted left breast nipple Plan: 1. Would recommend needle local excisional biopsy of area of intraductal papilloma this and benefits discussed with patient and daughter and they would like to proceed 2. Medical management medical conditions 3. Clearance from Dr. Raphael 4. Clearance from Dr. Leiva Risks and benefits of the procedure have been discussed with the patient and her daughter and this will be scheduled in the near future. Cc: Dr. Raphael
== END | disposition home or self-care (01) ==
LOC: WWCWWP 10:53
PROVIDERS: ATTEND Surgery
DX: Z53.9 Procedure and treatment not carried out, unspecified reason (principal)

== ENCOUNTER 2018-05-15 07:15 | Day surgery (SDC) | payer MEDICARE, OTHER ==
[2018-05-14 09:37] VITALS: BMI 31.1
[~2018-05-15 07:15] MED LIST: DEXAMETHASONE SOD PHOSPHATE 10 MG/ML 1 ML VIAL IV ONE; HEPARIN SODIUM,PORCINE 5,000 UNIT/ML 1 ML VIAL SQ ONE; HYDROmorphone 0.5 MG/0.5 ML SYRINGE IVP PRN; LACTATED RINGERS 1,000 ML IV SCH; ONDANSETRON 4 MG/2 ML VIAL IVP ONE; Pre Op ABX Message 1 EACH MISC MISCELLANE ONE
[2018-05-15] MEDS ORDERED: LIDOCAINE 1% 20 ML VIAL (10MG/ML) FOR IV START INTRADERMA ONE (07:56)
[2018-05-15 08:43] VITALS: RESP 16
[2018-05-15] MEDS ORDERED: SODIUM BICARB 4% 5 ML VIAL (0.48 MEQ/ML) MISCELLANE ONE (08:50)
[2018-05-15] MEDS ORDERED: LIDOCAINE 1% INJ 10MG/ML (20 ML MDV) SQ ONE ×3 (08:50→10:49)
[2018-05-15] MEDS ORDERED: HEPARIN SODIUM,PORCINE 5,000 UNIT/ML 1 ML VIAL SQ ONE (09:36)
[2018-05-15] MEDS ORDERED: fentaNYL (PF) 50 MCG/ML 2 ML AMP ONE (09:51)
[2018-05-15] MEDS ORDERED: ePHEDrine SULFATE/0.9% NACL/PF 50 MG/5 ML SYRINGE IV ONE (09:51)
[2018-05-15] MEDS ORDERED: PROPOFOL 10 MG/ML 20 ML VIAL IV ONE (09:51)
[2018-05-15] MEDS ORDERED: SUCCINYLCHOLINE CHLORIDE 100 MG/5 ML SYR IV ONE (09:51)
[2018-05-15] MEDS ORDERED: MIDAZOLAM 2 MG/2 ML VIAL ONE (09:51)
[2018-05-15] MEDS ORDERED: LIDOCAINE 1% INJ 10MG/ML (20 ML MDV) ONE (09:51)
--- NOTE | 2018-05-15 10:55 | P.PCN ---
Date of Procedure: 05/15/18 Preoperative Diagnosis: Intraductal papilloma left breast on core biopsy Postoperative Diagnosis: Same Procedure(s) Performed: Left breast needle localization and excisional biopsy Anesthesia: GETA Estimated Blood Loss (ml): 5 IV fluids (ml): 400 Pathology: other (Breast tissue) Condition: stable Disposition: PACU Indications for Procedure: Core biopsy left breast revealing intraductal papilloma Operative Findings: Dilated breast ducts Description of Procedure: Radha is a 72-year-old white female who is status post left breast core biopsy which revealed intraductal papilloma. She is therefore recommended to undergo a needle localization and excisional biopsy of the area of concern in the left breast. The patient initially went to radiology for needle localization of area of concern was performed. Patient was then brought to the operating room. Following induction of anesthesia the left breast was prepped and draped in a sterile fashion. An incision was made and carried down to the hook of the needle. Surrounding tissue was excised. The cavity was marked using a titanium clip. After we were assured that hemostasis was attained the deep tissues were closed using 3-0 Vicryl suture. To facilitate onco-plastic closure the superior flap was mobilized aproximately 4cm x 2 cm and the inferior flap was mobilized approximately 4cm x 2 cm. The skin was closed using 4-0 Monocryl. The specimen was painted for orientation. It was sent to radiology for determination that the area of concern about removed. This was confirmed. The patient tolerated the procedure in stable condition. All instrument and sponge counts were correct at the end of the case. The specimen was sent for radiology to pathology.
--- NOTE | 2018-05-15 10:57 | P.DS ---
Providers Attending physician: Sharla Keller Primary care physician: Rosemary Raphael Plan - Discharge Summary New Discharge Prescriptions: No Action amLODIPine [Norvasc] 5 mg PO QAM Simvastatin [Zocor] 40 mg PO HS Nitroglycerin Sl Tabs [Nitrostat] 0.4 mg SUBLINGUAL Q5M PRN PRN Reason: Chest Pain Lisinopril [Zestril] 10 mg PO QAM Atenolol [Tenormin] 50 mg PO HS ALPRAZolam [Xanax] 0.5 mg PO BID PRN PRN Reason: Anxiety Gemfibrozil [Lopid] 600 mg PO AC-BID Albuterol Nebulized [Ventolin Nebulized] 2.5 mg INHALATION Q6H PRN PRN Reason: Dyspnea Albuterol Inhaler [Ventolin Hfa Inhaler] 1 - 2 puff INHALATION RT-Q6H PRN PRN Reason: Dyspnea Discharge Medication List ALPRAZolam [Xanax] 0.5 mg PO BID PRN 10/09/17 [History] Atenolol [Tenormin] 50 mg PO HS 10/09/17 [History] Lisinopril [Zestril] 10 mg PO QAM 10/09/17 [History] Nitroglycerin Sl Tabs [Nitrostat] 0.4 mg SUBLINGUAL Q5M PRN 10/09/17 [History] Simvastatin [Zocor] 40 mg PO HS 10/09/17 [History] amLODIPine [Norvasc] 5 mg PO QAM 10/09/17 [History] Gemfibrozil [Lopid] 600 mg PO AC-BID 04/24/18 [History] Albuterol Inhaler [Ventolin Hfa Inhaler] 1 - 2 puff INHALATION RT-Q6H PRN 05/14/18 [History] Albuterol Nebulized [Ventolin Nebulized] 2.5 mg INHALATION Q6H PRN 05/14/18 [History] Follow up Appointment(s)/Referral(s): Sharla Keller MD [STAFF PHYSICIAN] - 1 Week Activity/Diet/Wound Care/Special Instructions: Do not drive today Patient may shower after 48 hours Wear bra at all times unless showering Discharge Disposition: HOME SELF-CARE
[2018-05-15 11:05] VITALS: TEMP 97.1
[2018-05-15 11:49] VITALS: BP 124/66; PULSE 76
--- NOTE | 2018-05-15 12:55 | MM ---
EXAMINATION TYPE: MG pre op needle loc LT, MG surgical specimen LT DATE OF EXAM: 05/15/2018 10:18 AM COMPARISON: NONE HISTORY: Intraductal papilloma on recent ultrasound guided core biopsy Informed consent was obtained and all the patient's questions were answered. The clip in question wa s localized mammographically. The standard sterile technique was utilized, as well as appropriate l ocal anesthesia with 1% Lidocaine and bicarbonate. Localization needle followed by placement of a gu idewire was performed under mammographic guidance. Verification images demonstrate appropriate deploy ment of the guidewire. The patient tolerated the procedure well and left the department in stable co ndition. Specimen radiograph demonstrates the clip in question to reside within the specimen. IMPRESSION: Successful needle localization and open biopsy left breast with pathology results pending .
== END 2018-05-15 11:58 | disposition home or self-care (01) ==
LOC: OR 07:15
PROVIDERS: ATTEND Surgery
DX: D24.2 Benign neoplasm of left breast (principal); Z80.3 Family history of malignant neoplasm of breast; Z80.49 Family history of malignant neoplasm of other genital organs; Z90.49 Acquired absence of other specified parts of digestive tract; I25.10 Atherosclerotic heart disease of native coronary artery without angina pectoris; Z95.5 Presence of coronary angioplasty implant and graft; I10 Essential (primary) hypertension; F17.210 Nicotine dependence, cigarettes, uncomplicated; Z79.899 Other long term (current) drug therapy; Z88.2 Allergy status to sulfonamides; Z88.8 Allergy status to other drugs, medicaments and biological substances; Z85.3 Personal history of malignant neoplasm of breast; E78.5 Hyperlipidemia, unspecified
CPT/HCPCS: 19125; 76098; 19281; J2250; J1644; J1100; J2405; J2001; J3010; J0330; J2704; 88307

== ENCOUNTER → 2018-05-24 | Outpatient (CLI) | payer MEDICARE, OTHER ==
[2018-05-24 08:23] VITALS: BP 148/63; PULSE 64; RESP 18; TEMP 97.1; BMI 31.1
--- NOTE | 2018-05-24 08:36 | P.PN ---
Progress Note - Text Progress Note Date: 05/24/18 The patient is status post left breast needle localization and excisional biopsy on . The pathology revealed a sclerotic intraductal papilloma. The papilloma was completely excised. There was radial scar, and moderate to florid ductal hyperplasia. The patient has no complaints postoperatively. Physical exam: Incision left breast clean and dry Heart regular rate and rhythm Lungs: Clear Impression: 1. Patient status post left breast excisional biopsy for intraductal papilloma Plan: 1. Repeat left breast mammogram and physician exam in 6 months time 2. Patient has any questions or concerns she will call us immediately Cc: Dr. Raphael
== END ==
LOC: WWCWWP 08:11
PROVIDERS: ATTEND Surgery
DX: Z53.9 Procedure and treatment not carried out, unspecified reason (principal)

== ENCOUNTER → 2018-09-27 | Outpatient (CLI) | payer MEDICARE, OTHER ==
--- NOTE | 2018-09-27 14:44 | USB ---
Reason for exam: follow-up at short interval from prior study. History: Patient is postmenopausal, has history of high-risk lesion on a previous biopsy at age 72, has history of endometrial cancer at age 27, and has history of breast cancer at age 24. High risk MG pre op needle loc LT of the left breast, May 15, 2018. High risk US biopsy breast VAD LT of the left breast, May 04, 2018. Malignant mastectomy of the right breast, January 01, 2008. Malignant right mammotome panel of the right breast, November 21, 2007. Saline implant in the right breast, 2007. Reconstruction of the right breast, 2007. Lumpectomy of the left breast, 1970. Physical Findings: Nurse did not find any significant physical abnormalities on exam. US Breast RT Right complete breast ultrasound includes all four quadrants, the retroareolar region and axilla. Finding demonstrates a 1.4 x 0.8 x 0.8cm lymph node at the axilla, multiple nodes in the same area, some with equivocal cortical thckening, possibly reactive. Re-evaluation in 3 months. If prominent at that time biopsy should be considered in this patient with a history of breast cancer. No fluid collection seen. These results were verbally communicated with the patient and result sheet given to the patient on 09/27/18. ASSESSMENT: Probably benign, BI-RAD 3 RECOMMENDATION: Surgical consultation of the right breast. Called with mammographic findings and has scheduled an appointment for the patient for 10/04/18 at 3:[address] Keller. PRELIMINARY REPORT CALLED AND FAXED TO DR. KELLER ON 09/27/18. Ultrasound of the right breast in 3 months.
== END | disposition home or self-care (01) ==
LOC: RADUSWWP 12:55
PROVIDERS: ATTEND Internal Medicine
DX: T85.43XA Leakage of breast prosthesis and implant, initial encounter (principal)

== ENCOUNTER → 2018-10-04 | Outpatient (CLI) | payer MEDICARE, OTHER ==
[2018-10-04 14:44] VITALS: BP 145/72; PULSE 64; RESP 18; TEMP 98.1; BMI 30.2
--- NOTE | 2018-10-04 15:27 | P.PN ---
Subjective Progress Note Date: 10/04/18 Radha is a 72-year-old white female who is status post ultrasound-guided core biopsy and 3119. Pathology revealed a sclerotic intraductal papilloma with calcifications and metaplastic changes on the left side. The patient is status post right mastectomy with subpectoral reconstruction in 2008. She had 2 lymph node sampling states did not have any radiation therapy. She did not have any hormonal or chemotherapy. The surgery was done at [facility] which is now [facility]. The patient has no complaints related to the ultrasound-guided core biopsy. The patient 1 week ago began experiencing pain in the right chest and into the area of her implant. The patient has no history of any trauma to the right chest wall. The patient has no history of any recent infection. The implant appeared to be slid over with a area of cavitation w the implant had been. She had no history of any trauma to that area. ultrasound of the right chest wall / breast was performed and [address]. This revealed a 1.4 x 0.8 cm lymph node in the axilla and multiple nodes in the same area with equivocal cortical thickening. Reevaluation of the adenopathy in 3 months was recommended. If irrigated prominent than a biopsy is recommended. The patient states that the pain is decreased in intensity but is still persistant. The patient states he would like to have the implant removed and not replaced. Family history: 1. Maternal aunt: Questionable ovarian cancer 2. Patient: Uterine cancer, breast cancer 3. Brother: Prostate cancer 4. Son: Testicular cancer 5. 2 sons and brother with melanoma Past surgical history: 1. Hysterectomy 2. Mastectomy of the right breast with subpectoral reconstruction 3. Lumpectomy of the left breast 4. Cholecystectomy 5. Cardiac stents 2007 6. Bladder suspension Past medical history: 1. Coronary artery disease/stents placed 2. Hypertension 3. High cholesterol Review of systems: HEENT bilateral blurred vision bilateral eye pain Years bilateral decreased hearing and ringing in her ears Headaches at times Breasts: Bilateral as per HPI Heart: Cardiac stents and hypertension Respiratory: Smoker, asthma GI: Constipation intermittent diarrhea : Hematuria at times, reports kidney stones, follows with Dr. Raphael Musculoskeletal: Arthritis Integument: Denies pruritus denies rash Neurologic: Denies numbness denies weakness Psychiatric: Reports anxiety denies depression Endocrine: Reports fatigue Hematologic: Negative, she does not take any blood thinners Objective - Vital Signs Vital signs: Vital Signs Temp 98.1 F 10/04/18 14:39 Pulse 64 10/04/18 14:39 Resp 18 10/04/18 14:39 BP 145/72 10/04/18 14:39 Pulse Ox 94 L 10/04/18 14:39 Intake & Output 10/03/18 10/04/18 10/04/18 18:59 06:59 18:59 Weight 74.843 kg - Exam BMI 30.2 - Constitutional General appearance: Present: average body habitus - EENT Eyes: Present: EOMI ENT: Present: hearing grossly normal - Neck Neck: Present: normal ROM - Respiratory Respiratory: bilateral: CTA - Cardiovascular Rhythm: regular Heart sounds: normal: S1, S2 - Gastrointestinal General gastrointestinal: Present: soft - Integumentary Integumentary: Present: normal turgor - Musculoskeletal Musculoskeletal: Present: gait normal - Psychiatric Psychiatric: Present: A&O x's 3, appropriate affect, intact judgment & insight - Allied health notes Allied Health Notes Comment(s): breast exam: right breast: chest wall, incision clean and dry, fullness in the upper medial aspect of the left chest wall question as to whether this represents a lesion within any residual breast tissue versus implant adage, tenderness in the lateral aspect of the breast over the area of the implant Right axilla: No specific adenopathy of concern Left breast: Multi-positional exam fibrocystic changes within the scar from prior biopsy no dominant masses or nodules of concern Left axilla: No adenopathy of concern Assessment and Plan Assessment: Impression: 1. Coronary artery disease/stents placed 2. Hypertension 3. High cholesterl 4. Pain right chest wall near area of implant 5. Possibly leaking implant 6. Grade axillary adenopathy 7. Following this upper inner aspect left breast question related to shift and implant versus subcutaneous lesion in this area Plan: 1. MRI right breast 2. Ultrasound core biopsy right axillary adenopathy 3. Follow-up after these studies are done Patient has stated she wants the implant removed further disc leaking or not. She states that since it is been placed she has had multiple problems related to it and she is not interested in reconstruction at this time. We will have further discussion regarding this after the MRI and ultrasound core biopsy results are available. Cc: Dr. Raphael
== END | disposition home or self-care (01) ==
LOC: WWCWWP 14:33
PROVIDERS: ATTEND Surgery
DX: Z53.9 Procedure and treatment not carried out, unspecified reason (principal)

== ENCOUNTER 2018-10-16 07:50 | Day surgery (SDC) | payer MEDICARE, OTHER ==
[2018-10-16 08:11] VITALS: TEMP 98
[2018-10-16] MEDS ORDERED: ALPRAZolam 0.25 MG TAB PO ONE (08:14)
[2018-10-16 09:55] VITALS: BP 149/72; PULSE 63; RESP 16
--- NOTE | 2018-10-16 13:14 | US ---
EXAMINATION TYPE: US biopsy lymph node DATE OF EXAM: 10/16/2018 HISTORY: Breast carcinoma, enlarged lymph node right axilla. FINDINGS: Maximal barrier technique was utilized. The skin overlying a suitable path to the patient' s right axillary node was localized with ultrasound and the overlying skin prepped and draped. Ultra sound was utilized with sterile technique. Lidocaine was used for local anesthesia. A skin wilda was made with a scalpel. An 20-gauge needle was advanced under direct ultrasound guidance and core spec imen obtained of the mass. Specimen submitted in formalin to Pathology. Following the procedure, he mostasis achieved and the patient is discharged in stable condition without complication. IMPRESSION:STATUS POST ULTRASOUND GUIDED CORE BIOPSY OF RIGHT AXILLARY NODE PATHOLOGY IS PENDING. TH IS PROCEDURE IS PERFORMED BY THE UNDERSIGNED.
== END 2018-10-16 10:08 | disposition home or self-care (01) ==
LOC: RADPROMAIN 07:50
PROVIDERS: ATTEND Surgery
DX: C76.1 Malignant neoplasm of thorax (principal)
CPT/HCPCS: 38505; 76942; 88305; 88341; 88342

== ENCOUNTER → 2018-10-17 | Outpatient (CLI) | payer MEDICARE, OTHER ==
--- NOTE | 2018-10-17 13:02 | BMR ---
EXAMINATION TYPE: MR breast BILAT wo/w con DATE OF EXAM: 10/17/2018 COMPARISON: Left breast biopsy dated 05/04/2018 yielding a result of a sclerotic intraductal papilloma with calcification and metaplastic change for which needle excision were performed. Pending right axi llary lymph node biopsy. HISTORY: Displacement of breast prosthesis and implants. Personal history of right breast cancer and high risk left papilloma with metaplastic change, excised. TECHNIQUE: A series of fat and water weighted images in the long and short axis views of both breasts are obtained in conjunction with dynamic contrast MRI with subtraction technique. The patient was i njected with 7.5 mL intravenous Gadavist gadolinium contrast. Three-dimensional and additional post processing imaging is created on independent workstation and reviewed during official interpretation of this study. FINDINGS: The breasts are composed of scattered fibroglandular tissue and there is mild asymmetric background p arenchymal enhancement secondary to the right breast mastectomy and implant reconstruction. The history of the right breast implant is unclear with some paperwork stating silicone implant and s ome stating saline implant. However on silicone suppression sequences there is signal dropout suggest ing a silicone implant. Radial folds are present within the implant. In addition to radial folds ther e is a small intracapsular rupture of the breast implant at its superior aspect as a noose sign is se en. There is also a multifocal lobulated contour of the breast implant with outpouching inferior medi ally near the chest wall. There is no evidence of extracapsular rupture. With regards to the left breast susceptibility artifact is seen from multiple surgical clips status p ost excision of a high risk lesion. Patient is also status post right axillary lymph node biopsy with postbiopsy change in the right axilla. Right axillary lymph nodes at the site of biopsy are slightly obscured. No other suspicious right axillary, left axillary, internal mammary or intramammary lymph nodes are seen. In the medial right lung base there is a focal consolidation that may represent atelectasis. IMPRESSION: BI-RADS 2-benign. Annual screening mammography is recommended. 1. Right breast implant intracapsular rupture and bulging contour defect inferomedially. 2. Postsurgical change on the left breast from surgical excision of a high risk lesion. Mild backgrou nd enhancement without suspicious mass. 3. Postbiopsy change of the right axilla with pending right axillary lymph node biopsy. 4. Consolidation of the right medial lung base that may represent atelectasis.
--- NOTE | 2018-10-22 15:44 | P.PN ---
Progress Note - Text Progress Note Date: 10/22/18 The patient's results of her right axillary core biopsy [place] [address] she had a right axillary core biopsy. 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 Postsurgical changes in the left from surgical excision noted. Consolidation of the right middle lung base may represent atelectasis. I discussed the results with the patient. She is going to see medical oncology. Her case is going to be presented at tumor board. She would still like to have the implant removed and will most likely undergo axillary node dissection. She will follow up with me after her case is presented at tumor board.
== END | disposition home or self-care (01) ==
LOC: RADMRIMAIN 07:39
PROVIDERS: ATTEND Surgery
DX: Z98.82 Breast implant status (principal); Z98.890 Other specified postprocedural states
CPT/HCPCS: C8937; C8908; A9585; 77049

== ENCOUNTER → 2018-11-02 | Outpatient (CLI) | payer MEDICARE, OTHER ==
--- NOTE | 2018-11-05 08:15 | PE ---
EXAMINATION TYPE: PET CT fusion skull to thigh DATE OF EXAM: 11/02/2018 COMPARISON: MRI breast of 10/17/2018. HISTORY: Known right breast cancer in 2009 treated with right breast lumpectomy without radiation or chemotherapy. Excision of intraductal hepatoma on the left breast in May 2018 and lymph node biopsy of the right axillary prominent lymph node on 10/16/2018. TECHNIQUE: Following the intravenous administration of 11.37 mCi of F-18 FDG, whole body images are performed from the skull base to the midthigh. Images are reviewed on the computer in the coronal, a xial, and sagittal planes. Reconstructed rotating images are created on independent workstation and reviewed on the computer. A localization and attenuation correction CT is performed in conjunction with the PET scan. SCAN: Initial FINDINGS: Mediastinal background: 1.63 Abdominal background: 2.9 SKULL BASE AND NECK: No suspicious hypermetabolic uptake. CHEST, MEDIASTINUM, AND HILAR REGION: There is focal hypermetabolic uptake in the high anterior media stinum just lateral to the sternum in the region of the right internal mammary chain. No discrete lima surable lymph node is seen although this is suspected to represent adenopathy. This has a maximum SUV of 3.61. There are nonenlarged right axillary lymph nodes that are clustered together with a maximum SUV of 3.2. No hypermetabolic activity within the residual right axilla or chest wall. Retropectoral right breast implant with known intracapsular rupture is seen. Surgical clips of the left breast fro m prior lumpectomy. ABDOMEN AND PELVIS: There is focal suspicious hypermetabolic uptake within a right adrenal gland nodu le with a maximum SUV of 12.8. The remainder of the abdomen and pelvis demonstrate no suspicious hype rmetabolic uptake. OSSEOUS STRUCTURES: No suspicious hypermetabolic uptake. OTHER CT: Paranasal sinuses and mastoid air cells are well aerated. There are benign calcified granul omatous changes of the lungs with mild emphysematous changes and scattered subsegmental atelectasis. Moderate atheromatous change of the thoracic aorta. No suspicious mediastinal adenopathy. Some calcif ied mediastinal lymph nodes that are not enlarged or from prior granulomatous change. There is a smal l hiatal hernia. Calcified benign granulomas are also seen within the liver. Cholecystectomy is noted . Punctate benign granulomas of the spleen. Scattered diverticula throughout the colon are seen, pron ounced in the sigmoid colon. Osseous structures are intact. Moderate degenerative changes of the spin e are seen. Nonenlarged right axillary lymph nodes are clustered such as on series 3 image 80 measuri ng only 6 mm in short axis. There is amorphous attenuation in the right internal mammary chain or pos sible lymph node measuring 8 mm in short axis, not well retrospectively seen on the prior MRI of the breasts. These suspicious right adrenal gland nodule measures 1.2 cm on series 3 image 32 and is keron d in nature with a Hounsfield unit of 45. Evaluation for hepatic metastasis is limited without contra st. IMPRESSION: 1. Right axillary lymph node is most compatible with a metastatic lesion as it is hypermetabolic with a maximum SUV of 12.8 and solid in nature. This measures 1.2 cm. 2. Clustered nonenlarged right axillary lymph nodes are seen that are biopsy proven metastatic invasi ve ductal carcinoma although only mildly hypermetabolic with a maximum SUV of 3.2. 3. Amorphous attenuation in the high right internal mammary chain with hypermetabolic activity highly suspicious for internal mammary pathologic adenopathy. Suspected lymph node measures approximately 9 mm in short axis and has a maximum SUV of 3.61.
== END | disposition home or self-care (01) ==
LOC: RADPETMAIN 15:26
PROVIDERS: ATTEND Internal Medicine Hematology & Oncology
DX: C50.411 Malignant neoplasm of upper-outer quadrant of right female breast (principal)
CPT/HCPCS: 78815; A9552

== ENCOUNTER → 2018-11-12 | Outpatient (CLI) | payer MEDICARE, OTHER ==
--- NOTE | 2018-11-12 11:26 | MM ---
Reason for exam: additional evaluation requested from prior study. Last mammogram was performed 6 months ago. History: Patient is postmenopausal, has history of high-risk lesion on a previous biopsy at age 72, has history of endometrial cancer at age 27, and has history of breast cancer at age 24. High risk MG pre op needle loc LT of the left breast, May 15, 2018. High risk US biopsy breast VAD LT of the left breast, May 04, 2018. Malignant mastectomy of the right breast, January 01, 2008. Malignant right mammotome panel of the right breast, November 21, 2007. Saline implant in the right breast, 2007. Reconstruction of the right breast, 2007. Lumpectomy of the left breast, 1970. Taking antineoplastic. Physical Findings: Nurse did not find any significant physical abnormalities on exam. MG 3D Diag Mammo W/Cad LT CC and MLO view(s) were taken of the left breast. Prior study comparison: May 04, 2018, left breast MG diagnostic mammo LT wo CAD. April 17, 2018, left breast MG 3d diag mammo w/cad LT. The breast tissue is heterogeneously dense. This may lower the sensitivity of mammography. There are new lumpectomy changes in the left posterior middle central position. There is no discrete abnormality. These results were verbally communicated with the patient and result sheet given to the patient on 11/12/18. ASSESSMENT: Benign, BI-RAD 2 RECOMMENDATION: Follow-up diagnostic mammogram of the left breast in 1 year.
== END | disposition home or self-care (01) ==
LOC: RADMAMWWP 10:16
PROVIDERS: ATTEND Surgery
DX: R92.8 Other abnormal and inconclusive findings on diagnostic imaging of breast (principal)
CPT/HCPCS: 77065; G0279; 77061

== ENCOUNTER → 2018-11-15 | Outpatient (CLI) | payer MEDICARE, OTHER ==
[2018-11-15 10:47] VITALS: BP 153/77; PULSE 60; RESP 18; TEMP 97.9; BMI 32.8
--- NOTE | 2018-11-15 11:34 | P.PN ---
Subjective Progress Note Date: 11/15/18 Radha is a 72-year-old white female who is status post ultrasound-guided core biopsy and 3119. Pathology revealed a sclerotic intraductal papilloma with calcifications and metaplastic changes on the left side. The patient is status post right mastectomy with subpectoral reconstruction in 2008. She had 2 lymph node sampling states did not have any radiation therapy. She did not have any hormonal or chemotherapy. The surgery was done at [facility] which is now [facility]. The patient has no complaints related to the ultrasound-guided core biopsy. The patient 1 week ago began experiencing pain in the right chest and into the area of her implant. The patient has no history of any trauma to the right chest wall. The patient has no history of any recent infection. The implant appeared to be slid over with a area of cavitation w the implant had been. She had no history of any trauma to that area. ultrasound of the right chest wall / breast was performed and [address]. This revealed a 1.4 x 0.8 cm lymph node in the axilla and multiple nodes in the same area with equivocal cortical thickening. Reevaluation of the adenopathy in 3 months was recommended. If irrigated prominent than a biopsy is recommended. The patient states that the pain is decreased in intensity but is still persistant. The patient states he would like to have the implant removed and not replaced. She underwent a right axillary core biopsy [id number] which was consistent with a moderately differentiated ductal breast carcinoma. This was ER positive [place] positive and HER-2 negative. She also underwent a mammogram of the left side on 9919 which was benign BIRADS 2. She [place] [address]. The PET scan revealed right adrenal gland with increased uptake questionable for metastatic lesion as well as clustered not enlarged right axillary lymph nodes and a amorphous attenuation in the high right internal mammary chain node. The patient's case was presented at tumor Board and there was discussion as to whether she should have an adrenal gland biopsy. The patient was seen by medical oncology Dr. Barajas and he did not think that it was necessary to do an adrenal gland biopsy he is going to start her on an antiestrogen medication. The patient stated like to have the implant removed from the right chest wall. Additionally at that time we will evaluate for local control the adenopathy in the axilla and consider axillary node resection. Family history: 1. Maternal aunt: Questionable ovarian cancer 2. Patient: Uterine cancer, breast cancer 3. Brother: Prostate cancer 4. Son: Testicular cancer 5. 2 sons and brother with melanoma Past surgical history: 1. Hysterectomy 2. Mastectomy of the right breast with subpectoral reconstruction 3. Lumpectomy of the left breast 4. Cholecystectomy 5. Cardiac stents 2007 6. Bladder suspension Past medical history: 1. Coronary artery disease/stents placed 2. Hypertension 3. High cholesterol Review of systems: HEENT bilateral blurred vision bilateral eye pain Years bilateral decreased hearing and ringing in her ears Headaches at times Breasts: Bilateral as per HPI Heart: Cardiac stents and hypertension Respiratory: Smoker, asthma GI: Constipation intermittent diarrhea : Hematuria at times, reports kidney stones, follows with Dr. Raphael Musculoskeletal: Arthritis Integument: Denies pruritus denies rash Neurologic: Denies numbness denies weakness Psychiatric: Reports anxiety denies depression Endocrine: Reports fatigue Hematologic: Negative, she does not take any blood thinners Objective - Vital Signs Vital signs: Vital Signs Temp 97.9 F 11/15/18 10:44 Pulse 60 11/15/18 10:44 Resp 18 11/15/18 10:44 BP 153/77 11/15/18 10:44 Pulse Ox 97 11/15/18 10:44 Intake & Output 11/14/18 11/15/18 11/15/18 18:59 06:59 18:59 Weight 76.204 kg - Exam BMI 32.8 - Constitutional General appearance: Present: obese - EENT Eyes: Present: EOMI ENT: Present: hearing grossly normal - Neck Neck: Present: normal ROM - Respiratory Details: decreased breath sounds at bases - Cardiovascular Rhythm: regular Heart sounds: normal: S1, S2 - Gastrointestinal General gastrointestinal: Present: soft - Integumentary Integumentary: Present: normal turgor - Musculoskeletal Musculoskeletal: Present: gait normal - Psychiatric Psychiatric: Present: A&O x's 3, appropriate affect, intact judgment & insight - Additional findings Additional findings: Breast examination: Right breast: Patient status post mastectomy with reconstruction, she has well-healed scars but patient complains of tenderness in the lateral aspect of the breast and superior aspect of the breast, she also has tenderness in the medial and inferior aspect of the breast believed to be related to a shift in the implant, additionally should be noted the PET scan revealed an internal mammary node which was suspicious for malignancy and this may be resulting in some discomfort as well Right axilla: Shotty adenopathy Left breasts: Scar from prior surgery multiple positional exam no dominant masses or nodules of concern Left axilla: No adenopathy of concern Assessment and Plan Assessment: Impression: 1. Personal history of right breast cancer 2. Personal history of uterine cancer 2. Family history of cancer 4. Biopsy-proven cancer with right axillary node 5. Hypertension 6. Nicotine dependence 7. High cholesterol 8. Asthma 9. PET scan with suspicious right adrenal lesion as well as suspicious high right internal mammary chain with hypermetabolic activity, clustered nonenlarged right axillary lymph nodes were seen that were biopsy-proven metastatic invasive ductal carcinoma 10. Stage IV breast cancer patient presently on anastrozole. Plan: 1. Patient still wishes a right breast implant to be removed she understands this may not resolve her pain however it is uncomfortable for her is shifted and she wishes it to be removed 2. The patient has biopsy-proven cancer in the right axillary adenopathy if these nodes are in proximity to where I'm removing the implant I would remove these at the same time for local control, she understands this is not curative and she also understands that this would be for local control. She understands that the risk of lymphedema is present and the risk of bleeding infection reaction to the anesthetic 3. Anastrozole as per medical oncology Cc: Dr. Raphael
== END | disposition home or self-care (01) ==
LOC: WWCWWP 10:29
PROVIDERS: ATTEND Surgery
DX: Z53.9 Procedure and treatment not carried out, unspecified reason (principal)

== ENCOUNTER 2018-11-27 06:43 | Day surgery (SDC) | payer MEDICARE, OTHER ==
[2018-11-23 14:10] VITALS: BMI 32.2
[~2018-11-27 06:43] MED LIST changes: -HYDROmorphone 0.5 MG/0.5 ML SYRINGE IVP PRN; -LACTATED RINGERS 1,000 ML IV SCH; +LIDOCAINE 1% 20 ML VIAL (10MG/ML) FOR IV START INTRADERMA PRN; +MIDAZOLAM 2 MG/2 ML VIAL IV PRN; +SCOPOLAMINE 1.5MG/72HR PATCH TRANSDERM ONE
[2018-11-27] MEDS: LACTATED RINGERS 1,000 ML IV SCH ×2 (07:18→23:10)
[2018-11-27] MEDS ORDERED: HYDROmorphone (PF) 1 MG/ML ONE (08:28)
[2018-11-27] MEDS ORDERED: PROPOFOL 10 MG/ML 20 ML VIAL IV ONE (08:28)
[2018-11-27] MEDS ORDERED: SUCCINYLCHOLINE CHLORIDE 100 MG/5 ML SYR IV ONE (08:28)
[2018-11-27] MEDS ORDERED: LIDOCAINE 1% INJ 10MG/ML (20 ML MDV) ONE (08:28)
[2018-11-27] MEDS ORDERED: fentaNYL (PF) 50 MCG/ML 2 ML AMP ONE (08:28)
[2018-11-27] MEDS ORDERED: ePHEDrine SULFATE/0.9% NACL/PF 50 MG/5 ML SYRINGE IV ONE (08:28)
[2018-11-27] MEDS ORDERED: MIDAZOLAM 2 MG/2 ML VIAL ONE (08:28)
[2018-11-27] MEDS ORDERED: HEPARIN SODIUM,PORCINE 5,000 UNIT/ML 1 ML VIAL SQ ONE (08:40)
--- NOTE | 2018-11-27 08:40 | P.NAPBC ---
[facility] Queries - [facility] Queries Was patient's case review presented at [facility] tumor board? If no, comment.: Yes Was patient's pathology reviewed at [facility]? If no, comment.: Yes Was breast conservation surgery offered? If no, comment.: No (prior mastectomy) Was sentinel node biopsy offered? If no, comment.: No (node + on core biopsy) Was diagnosis confirmed by percutaneous core biopsy? If no, comment.: Yes Is patient mastectomy patient?: No Was a preop referral to reconstructive surgeon offered?: Yes [facility] Comments: probable stage 4; pain with implant and wants implant removed Clinical Stage: stage 4
[2018-11-27] MEDS ORDERED: SODIUM CHLORIDE 0.9% 50 ML with ceFAZolin 2,000 MG IV ONE ×2 (08:45)
[2018-11-27] MEDS ORDERED: LIDOCAINE 1% INJ 10MG/ML (20 ML MDV) SQ ONE ×2 (08:57)
[2018-11-27] MEDS ORDERED: LACTATED RINGERS 1,000 ML IV ONE (10:24)
[2018-11-27] MEDS ORDERED: HYDROmorphone 1 MG/ML 1 ML SYRINGE IVP PRN (10:32)
[2018-11-27] MEDS ORDERED: ONDANSETRON 4 MG/2 ML VIAL IVP PRN (10:32)
[2018-11-27] MEDS ORDERED: NALOXONE 0.4 MG/ML 1 ML VIAL IV PRN (10:32)
--- NOTE | 2018-11-27 10:32 | P.OP ---
Date of Procedure: 11/27/18 Preoperative Diagnosis: shifted right breast implant, positive axillary adenopathy Postoperative Diagnosis: Same Procedure(s) Performed: Right breast implant, axillary node dissection Anesthesia: WILL Surgeon: Sharla Keller Estimated Blood Loss (ml): 25 IV fluids (ml): 950 Pathology: other (Right breast implant and capsule, axillary tissue) Condition: stable Disposition: floor Indications for Procedure: Abnormal right breast implant shifted, positive axillary adenopathy Operative Findings: Palpable axillary lymph nodes, shifted right breast implant Description of Procedure: The patient is a 73-year-old white female who is status post in the past mastectomy and sentinel node biopsy. She recently presented with the feeling that the implant had shifted and on exam was noted to have lymph nodes core biopsy positive in the axilla. The patient underwent a PET scan which revealed probable metastatic disease. Despite this she was complaining of pain related to the implant initially implanted be removed. Additionally preoperative discussion regarding the lymph nodes was entertained that if there were low axillary nodes easily accessible of these was removed at the time of implant re moval. The patient understood the risks and benefits and wished to proceed. The patient was taken to the operating room and the right chest wall and axilla were prepped and draped in a sterile fashion. An incision was made both superiorly and inferiorly down to the pectoralis muscle. This was divided to expose the capsule of the implant. The capsule was opened and the implant was removed. The capsule was excised. After assured that hemostasis was attained the area was well irrigated and Surgicel in powder form was placed. The pectoralis muscle was reapproximated with an divided to remove the implant using 3-0 Vicryl suture. The axilla was approached. Probable enlarged nodes highly suspicious were identified in the low axilla. This tissue was able to be dissected to the area of the axillary vein. The tissues were swept inferiorly being careful to preserve the areas of the long thoracic and thoracodorsal nerves. Several intercostal vessels were divided and ligated in the process. No other palpable adenopathy was identified. The axilla was irrigated. 2 KIMBERLY drains were placed. The subcutaneous tissues were closed using 3-0 Vicryl suture. The skin was closed using 4-0 Monocryl. Steri-Strips were applied. The patient tolerated the procedure in stable condition. 20 cc of 1% plain lidocaine local anesthetic were placed in the area of the incision. The patient tolerated the procedure in stable condition. All instrument and sponge counts were correct at the end of the case.
[2018-11-27] MEDS: HYDROmorphone 0.5 MG/0.5 ML SYRINGE IVP PRN ×3 (11:06→11:29)
[2018-11-27] MEDS: HYDROcodone/APAP 5-325MG 1 EACH TAB PO PRN ×3 (12:38→22:03)
[2018-11-27] MEDS: HEPARIN SODIUM,PORCINE 5,000 UNIT/ML 1 ML VIAL SQ SCH ×2 (17:16→23:53)
[2018-11-27] MEDS ORDERED: ALBUTEROL NEBULIZED 2.5 MG/3 ML INHALATION PRN (17:18)
[2018-11-27] MEDS: DEXTROSE 5%-0.45% NACL 1,000 ML IV SCH ×2 (17:27→23:09)
[2018-11-27] MEDS ORDERED: FENOFIBRATE 160 MG TAB PO SCH (17:45)
[2018-11-27] MEDS ORDERED: ATENOLOL 50 MG TAB PO SCH (21:00)
[2018-11-27] MEDS ORDERED: NON FORMULARY DRUG (Simvastatin 40 MG) PO SCH (21:00)
[2018-11-28] MEDS: HYDROcodone/APAP 5-325MG 1 EACH TAB PO PRN (05:22)
[2018-11-28] MEDS ORDERED: amLODIPine 5 MG TAB PO SCH (09:00)
[2018-11-28] MEDS ORDERED: FENOFIBRATE 160 MG TAB PO SCH (09:00)
[2018-11-28] MEDS ORDERED: LISINOPRIL 10 MG TAB PO SCH (09:00)
[2018-11-28] MEDS ORDERED: ANASTROZOLE 1 MG TAB PO SCH (09:00)
[2018-11-28 09:18] VITALS: BP 125/70; PULSE 62; RESP 24; TEMP 98.4
[2018-11-28] MEDS: HEPARIN SODIUM,PORCINE 5,000 UNIT/ML 1 ML VIAL SQ SCH (10:36)
[2018-11-28] MEDS: DEXTROSE 5%-0.45% NACL 1,000 ML IV SCH (11:11)
--- NOTE | 2018-11-28 11:47 | P.PN ---
Subjective Progress Note Date: 11/28/18 Principal diagnosis: Postop day #1 Radha is a 73-year-old white female postop day #1 removal of right breast subpectoral implant, and right axillary node lower level resection. The patient postoperatively is doing well and has no complaints. She is tolerating her diet without difficulty. Objective - Vital Signs Vital signs: Vital Signs Temp 98.4 F 11/28/18 08:16 Pulse 62 11/28/18 08:16 Resp 24 11/28/18 08:16 BP 125/70 11/28/18 08:16 Pulse Ox 94 L 11/28/18 08:16 Intake & Output 11/27/18 11/28/18 11/28/18 18:59 06:59 18:59 Intake Total 1350 1500 Output Total 600 90 130 Balance 750 1410 -130 Weight 75.75 kg Intake: IV 1350 Intake, IV Titration 1000 Amount Dextrose 5%-0.45% NaCl 1, 1000 000 ml @ 100 mls/hr IV . Q10H SEBASTIAN Rx#:[id number] Oral 500 Output: Drainage 75 90 130 Right Breast 70 90 130 Right Lower Breast 5 0 0 Urine 500 Estimated Blood Loss 25 Other: Voiding Method Toilet # Voids 1 - Exam BMI 32.6 - Constitutional General appearance: Present: obese - EENT Eyes: Present: EOMI ENT: Present: hearing grossly normal - Neck Neck: Present: normal ROM - Respiratory Respiratory: bilateral: CTA - Cardiovascular Rhythm: regular Heart sounds: normal: S1, S2 - Integumentary Integumentary Comment(s): Incision right chest wall clean and dry no evidence of any infection KIMBERLY drain lateral approximately 20 mL dark serous KIMBERLY drain more medial 130 mL serious light pink no evidence of any active bleeding No evidence of hematoma - Psychiatric Psychiatric: Present: A&O x's 3, appropriate affect, intact judgment & insight Assessment and Plan Assessment: Impression: 1. Patient doing well postop day #1 removal of right breast implant and low right axillary node dissection 2. Medial KIMBERLY drain 130 mL of serous fluid this is light pink in nature and no evidence of any hematoma or infection Plan: 1. Discharge home to be followed as outpatient if okay with medicine 2. Follow-up with Dr. Gallego in 1 week 2. Teach patient drain care
--- NOTE | 2018-11-28 11:48 | P.DS ---
Providers Attending physician: Sharla Keller Consults: 11/27/18 10:35 Consult Physician Routine Consulting Provider: Graham Garrido Consult Reason/Comments: medical managment Do you want consulting provider notified?: Yes Primary care physician: Rosemary Raphael Plan - Discharge Summary Discharge Rx Participant: No New Discharge Prescriptions: No Action amLODIPine [Norvasc] 5 mg PO QAM Simvastatin [Zocor] 40 mg PO HS Nitroglycerin Sl Tabs [Nitrostat] 0.4 mg SUBLINGUAL Q5M PRN PRN Reason: Chest Pain Lisinopril [Zestril] 10 mg PO QAM Atenolol [Tenormin] 50 mg PO HS ALPRAZolam [Xanax] 0.5 mg PO TID Gemfibrozil [Lopid] 600 mg PO AC-BID Albuterol Nebulized [Ventolin Nebulized] 2.5 mg INHALATION Q6H PRN PRN Reason: Dyspnea Albuterol Inhaler [Ventolin Hfa Inhaler] 1 - 2 puff INHALATION RT-Q6H PRN PRN Reason: Dyspnea Anastrozole [Arimidex] 1 mg PO DAILY Aspirin [Adult Low Dose Aspirin EC] 81 mg PO DAILY Discharge Medication List ALPRAZolam [Xanax] 0.5 mg PO TID 10/09/17 [History] Atenolol [Tenormin] 50 mg PO HS 10/09/17 [History] Lisinopril [Zestril] 10 mg PO QAM 10/09/17 [History] Nitroglycerin Sl Tabs [Nitrostat] 0.4 mg SUBLINGUAL Q5M PRN 10/09/17 [History] Simvastatin [Zocor] 40 mg PO HS 10/09/17 [History] amLODIPine [Norvasc] 5 mg PO QAM 10/09/17 [History] Gemfibrozil [Lopid] 600 mg PO AC-BID 04/24/18 [History] Albuterol Inhaler [Ventolin Hfa Inhaler] 1 - 2 puff INHALATION RT-Q6H PRN 05/14/18 [History] Albuterol Nebulized [Ventolin Nebulized] 2.5 mg INHALATION Q6H PRN 05/14/18 [History] Anastrozole [Arimidex] 1 mg PO DAILY 11/15/18 [History] Aspirin [Adult Low Dose Aspirin EC] 81 mg PO DAILY 11/23/18 [History] Follow up Appointment(s)/Referral(s): Sharla Keller MD [STAFF PHYSICIAN] - 1 Week Activity/Diet/Wound Care/Special Instructions: Teach patient drain care Discharge if okay with medicine Patient is to wear chest binder at all times Patient may shower after 48 hours Discharge Disposition: HOME SELF-CARE
--- NOTE | 2018-11-28 23:14 | P.CONS ---
History of Present Illness - Reason for Consult Consult date: 11/28/18 medical management Requesting physician: Sharla Keller - Chief Complaint Breast surgery - History of Present Illness consultation: this is a very pleasant 73-year-old patient. Patient has a past mastectomy. She felt to implant had shifted and patient is "core biopsy was positive in the axilla. PET scan did reveal metastatic disease. Patient underwent implant r emoval and lymph node dissection. Has a KIMBERLY drain. Pain is controlled. No nausea vomiting. Did tolerate her breakfast. Has been up to the bathroom.chronic stable medical conditions include coronary artery disease, hyperlipidemia, hypertension, Amena arthritis, seizure disorder. Patient's was diagnosed with breast cancer of the right side in 2007. Review of systems: GEN.: [None] EYES: [None] HEENT: [None] NECK: [None] RESPIRATORY: [None] CARDIOVASCULAR: [None] GASTROINTESTINAL: [None] GENITOURINARY: [None] MUSCULOSKELETAL: [pain in joints] LYMPHATICS: [None] HEMATOLOGICAL: [None] PSYCHIATRY: [None] NEUROLOGICAL: [None Social history: Patient is smoking less than a pack a day for over 50 years. Alcohol rarely. Family history: Cancer Physical examination: VITAL SIGNS: [98.4, 62, 24, 125/70, 94% room air] GENERAL: [BMI 32.6, sitting at the edge of the bed,]. EYES: [Pupils equal. Conjunctiva bri]l. HEENT: [External appearance of nose and ears normal, oral cavity grossly bri l]. NECK: [JVD not raised; masses not palpable]. HEART: [First and second heart sounds distantl; no edema]. LUNGS:[ Respiratory rate normal; decreased breath sounds]. ABDOMEN: [Soft, nontender, liver spleen not palpable, no masses palpable]. PSYCH: [Alert and oriented x3; mood and affect bri]l. NEUROLOGICAL: [Cranial nerves grossly intact; no facial asymmetry, power and sensation grossly intact]. LYMPHATICS: [No lymph nodes palpable in the axilla and neck CHEST wall: Dressing in place to KIMBERLY drain in place MUSCULOSKELETAL: Evidence of OA especially the fingers investigations: no labs today ] assessment: -status post right breast implant and axillary node dissection -Coronary artery disease -Hyperlipidemia -Essential hypertension -Primary osteoarthritis -Seizure disorder -Obesity BMI 32.6 -Chronic nicotine dependence patient's cigarette smoker Plan: home medications resumed. Patient is feeling well. Should follow with the family doctor. Advised against smoking. Thank you Dr. Oliva Ríos Past Medical History Past Medical History: Asthma, Coronary Artery Disease (CAD), Cancer, CVA/TIA, Hyperlipidemia, Hypertension, Osteoarthritis (OA), Seizure Disorder Additional Past Medical History / Comment(s): breast ca right breast 2007, hx. uterine ca, used to take seizure med-no seizures for @least 40 years, TIA's-no residual effects, just finished z-dada for sinus infection History of Any Multi-Drug Resistant Organisms: None Reported Past Surgical History: Bladder Surgery, Breast Surgery, Cholecystectomy, Heart Catheterization With Stent, Hysterectomy Additional Past Surgical History / Comment(s): right mastectomy 2007, left lumpectomy 1970, left lumpectomy may 2018, bladder suspension, Past Anesthesia/Blood Transfusion Reactions: No Reported Reaction Date of Last Stent Placement:: 2007 Past Psychological History: Anxiety Smoking Status: Current every day smoker Past Alcohol Use History: Rare Additional Past Alcohol Use History / Comment(s): <ppd for 50 yrs. on & off Past Drug Use History: None Reported - Past Family History Brother(s) Son(s) Family Medical History: Cancer Medications and Allergies Home Medications Medication Instructions Recorded Confirmed Type ALPRAZolam [Xanax] 0.5 mg PO TID 10/09/17 11/27/18 History Atenolol [Tenormin] 50 mg PO HS 10/09/17 11/27/18 History Lisinopril [Zestril] 10 mg PO QAM 10/09/17 11/23/18 History Nitroglycerin Sl Tabs [Nitrostat] 0.4 mg SUBLINGUAL Q5M PRN 10/09/17 11/27/18 History Simvastatin [Zocor] 40 mg PO HS 10/09/17 11/27/18 History amLODIPine [Norvasc] 5 mg PO QAM 10/09/17 11/23/18 History Gemfibrozil [Lopid] 600 mg PO AC-BID 04/24/18 11/27/18 History Albuterol Inhaler [Ventolin Hfa 1 - 2 puff INHALATION RT-Q6H PRN 05/14/18 11/27/18 History Inhaler] Albuterol Nebulized [Ventolin 2.5 mg INHALATION Q6H PRN 05/14/18 11/27/18 History Nebulized] Anastrozole [Arimidex] 1 mg PO DAILY 11/15/18 11/23/18 History Aspirin [Adult Low Dose Aspirin EC] 81 mg PO DAILY 11/23/18 11/23/18 History Allergies Allergy/AdvReac Type Severity Reaction Status Date / Time adhesive tape Allergy Rash/Hives Verified 11/27/18 19:27 Sulfa (Sulfonamide Allergy Unknown Verified 11/27/18 19:27 Antibiotics) Childhood atorvastatin [From Lipitor] AdvReac Unknown Verified 11/27/18 19:27 diazepam [From Valium] AdvReac Unknown Verified 11/27/18 19:27 Physical Exam Vitals: Vital Signs Temp Pulse Resp BP Pulse Ox 11/28/18 08:16 98.4 F 62 24 125/70 94 L 11/28/18 04:12 98.6 F 78 18 139/65 94 L 11/27/18 23:56 97.9 F 76 16 150/60 96 11/27/18 21:50 74 20 129/71 95 11/27/18 20:08 97.9 F 70 18 109/52 95 11/27/18 15:35 76 18 135/68 96 11/27/18 14:35 77 18 123/66 95 11/27/18 13:35 77 18 119/60 94 L 11/27/18 13:05 73 18 124/67 95 11/27/18 12:35 80 18 127/60 94 L 11/27/18 12:20 83 18 113/57 94 L 11/27/18 12:05 81 18 123/60 94 L Intake and Output 11/27/18 11/28/18 11/28/18 22:59 06:59 14:59 Intake Total 1500 Output Total 145 20 130 Balance 1355 -20 -130 Intake: Intake, IV Titration 1000 Amount Dextrose 5%-0.45% NaCl 1, 1000 000 ml @ 100 mls/hr IV . Q10H SEBASTIAN Rx#:[id number] Oral 500 Output: Drainage 145 20 130 Right Breast 140 20 130 Right Lower Breast 5 0 0 Other: Voiding Method Toilet Toilet # Voids 1 1
== END 2018-11-28 12:22 | disposition home or self-care (01) ==
LOC: OR 06:43 → 6PED 10:29 → OR 11-28 12:22
PROVIDERS: ATTEND Surgery
DX: C76.1 Malignant neoplasm of thorax (principal); T85.898A Other specified complication of other internal prosthetic devices, implants and grafts, initial encounter; Z90.11 Acquired absence of right breast and nipple; Z85.3 Personal history of malignant neoplasm of breast; I25.10 Atherosclerotic heart disease of native coronary artery without angina pectoris; I10 Essential (primary) hypertension; E78.5 Hyperlipidemia, unspecified; M19.90 Unspecified osteoarthritis, unspecified site; E66.9 Obesity, unspecified; Z68.32 Body mass index [BMI] 32.0-32.9, adult; F17.210 Nicotine dependence, cigarettes, uncomplicated; J45.909 Unspecified asthma, uncomplicated; Z86.73 Personal history of transient ischemic attack (TIA), and cerebral infarction without residual deficits; Z85.42 Personal history of malignant neoplasm of other parts of uterus; Z90.49 Acquired absence of other specified parts of digestive tract; Z95.5 Presence of coronary angioplasty implant and graft; Z90.710 Acquired absence of both cervix and uterus; F41.9 Anxiety disorder, unspecified; Z79.811 Long term (current) use of aromatase inhibitors; Z79.82 Long term (current) use of aspirin; Z79.899 Other long term (current) drug therapy; Z88.2 Allergy status to sulfonamides; Z88.8 Allergy status to other drugs, medicaments and biological substances; Z91.09 Other allergy status, other than to drugs and biological substances
CPT/HCPCS: 88305; 88307; 38525; 19328; J1644 ×2; J1100; J2405; J0690; J2001; S0170; J1170 ×2

== ENCOUNTER → 2018-12-06 | Outpatient (CLI) | payer MEDICARE, OTHER ==
--- NOTE | 2018-12-06 08:49 | P.PN ---
Progress Note - Text Progress Note Date: 12/06/18 The patient is a 73-year-old white female status post right breast implant removal and right axillary node resection on [id number]. Pathology revealed 7 of 7 axillary nodes positive for malignancy. She is status post right mastectomy in the past with sentinel node biopsy. A recent PET scan revealed probable metastatic disease. The lymph nodes from the axilla were clinically palpable and removed for local control. The patient at this time states that the pain related to the implant is definitely improved. The output from the drains is serous in nature and below 40 mL per day for several days in a row. She does not complain of any swelling in her arm. PE: lungs: clear heart: RRR Incision: Clean and dry, KIMBERLY output serous in nature minimal Impression: 1. Patient doing well postoperative 2. Axillary lymph nodes positive for malignancy 3. PET scan probable metastatic disease Plan: 1. Bone density to be followed by appointment with medical oncology 2. Appointment with radiation oncology 3. Follow-up here in 3 months or sooner if seroma develops Cc: Dr. Raphael
[2018-12-06 08:55] VITALS: BP 156/83; PULSE 60; RESP 18; TEMP 98.1; BMI 32.8
== END | disposition home or self-care (01) ==
LOC: WWCWWP 08:33
PROVIDERS: ATTEND Surgery
DX: Z53.9 Procedure and treatment not carried out, unspecified reason (principal)

== ENCOUNTER → 2018-12-13 | Outpatient (CLI) | payer MEDICARE, OTHER ==
--- NOTE | 2018-12-13 11:00 | BD ---
EXAMINATION TYPE: Axial Bone Density DATE OF EXAM: 12/13/2018 COMPARISON: NONE CLINICAL HISTORY: Postmenopausal female. Height: 60 inches Weight: 163 FRAX RISK QUESTIONS: Alcohol (3 or more units per day): no Family History (Parent hip fracture): no Glucocorticoids (More than 3mos): no (Ex: prednisone, prednisolone, methylprednisolone, dexamethasone, and hydrocortisone). History of Fracture in Adulthood: no Secondary Osteoporosis: 1. Type 1 Diabetes: no 2. Hyperthyroidism: no 3. Menopause before 45: no 4. Malnutrition: no 5. Chronic liver disease: no Rheumatoid Arthritis: no Current Tobacco Use: yes RISK FACTORS HISTORY OF: Family History of Osteoporosis: no Active: yes Diet low in dairy products/other sources of calcium: no Postmenopausal woman: yes Take estrogen and/or progesterone medications: antineoplastic now (hormonal contraceptives at one time) Lost more than 2 inches in height since high school: no Frequent falls: no Poor Health: somewhat Hyperparathyroidism: no Adrenal Insufficiency: unsure MEDICATIONS: Prednisone or other steroids: only very very occasionally How Lon or more years Thyroid Medications:no Osteoporosis Medications: no Additional Medications: Anastrozole , blood pressure meds, cholesterol meds Additional History: endometrial/uterine CA, Breast CA, adrenal gland & sternal CA, heart stents EXAM MEASUREMENTS: Bone mineral densitometry was performed using the [employer] System. Bone mineral density as measured about the Lumbar spine is: ----- L1-L4(G/cm2): 1.802 T Score Values are as follows: ----- L2: 3.9 ----- L3: 5.6 ----- L4: 7.5 ----- L1-L4: 5.2 Bone mineral density BASELINE Bone mineral density about the R hip (g/cm2): 0.914 Bone mineral density about the L hip (g/cm2): 0.947 T Score values are as follows: -----R Neck: -0.9 -----L Neck: -0.7 -----R Total: 0.3 -----L Total: 0.3 Bone mineral density BASELINE IMPRESSION: Normal (Values between +1 and -1 indicate normal bone mass). Consider repeating this study in 5 year s or sooner if there is some new clinical indication. NOTE: T-SCORE=SD OF THE YOUNG ADULT MEAN.
== END | disposition home or self-care (01) ==
LOC: RADBDWWP 08:39
PROVIDERS: ATTEND Internal Medicine Hematology & Oncology
DX: M81.0 Age-related osteoporosis without current pathological fracture (principal)
CPT/HCPCS: 77080

== ENCOUNTER → 2019-04-24 | Outpatient (CLI) | payer MEDICARE ==
[2019-04-24 16:16] LABS: African American GFR (CKD) >90 (>60 ml/min/1.73 sqM); Blood Urea Nitrogen 11 mg/dL (7-17); Non-African American GFR(CKD) >90 (>60 ml/min/1.73 sqM)
--- NOTE | 2019-04-25 10:14 | CT ---
EXAMINATION TYPE: CT ChestAbdPelvis w con DATE OF EXAM: 04/24/2019 INDICATION: f/u breast ca COMPARISON: 11/02/2018 CT DLP: 1556 mGycm CONTRAST: Performed with Oral Contrast and with IV Contrast, patient injected with 100 mL of Isovue 300. TECHNIQUE: Axial images at 5 mm thick sections. Reconstructed images in the coronal plane. Delayed images through the kidneys. FINDINGS: CT CHEST: Portion of the thyroid visualized is normal. No suspicious lung nodules or focal infiltrates are present. There is a calcified granuloma in the p osterior lateral right upper lobe measuring 0.6 cm present previously. Additional 0.6 cm calcificatio n is within the posterior medial left lower lung field. Couple small areas of peripheral pneumonitis are within the right middle lung field and lateral right lower lobe. There may be some subsegmental atelectasis in the dependent portions of the lung bases b ilaterally. No enlarged mediastinal or hilar adenopathy is evident. The small suspicious intermammillary lymph no de on the right is stable in appearance from comparison. The ascending aorta diameter at the level of the main pulmonary artery is 3.2 cm. The main pulmonary artery diameter at the bifurcation is 2.[address] ABDOMEN: Liver: Normal Spleen: There is a 1 cm hyperdensity within the lower pole of the spleen may be a hemangioma. Pancreas: Normal Adrenal glands: The adrenal glands are slightly prominent measuring 1.4 cm on the left and 1.4 cm on the right. Gallbladder: Surgically absent Kidneys: No masses are evident. No hydronephrosis is present. Tiny cortical renal cysts is present on the anterior lateral right upper kidney. Couple of nonobstructing renal stones may be present bila terally. Delayed images were obtained through the kidneys, which remain unremarkable. Aorta: Vascular calcification is within the aorta. Inferior vena cava: Normal. CT PELVIS: Loops of bowel within the abdomen and pelvis are normal. Multiple diverticuli are within the sigmoid colon. Some wall thickening distal rectosigmoid junction is not excluded. This could be related to i ncomplete distention. There are loops of bowel which are incompletely distended or lack oral contra st limiting their evaluation. Appendix: Normal as visualized. Urinary bladder: Normal. Genitourinary structures: Uterus is surgically absent. Adnexa are clear. Osseous structures: No suspicious lytic or sclerotic lesions. IMPRESSIONS: 1. Diverticulosis without acute diverticulitis. 2. Some mild diffuse wall thickening of the rectosigmoid junction may be present which could be relat ed to incomplete distention. Consider sigmoidoscopy for additional evaluation. 4. Scattered peripheral lower lung field areas of pneumonitis related to subsegmental atelectasis. 3. Slight prominence of the adrenal glands, present previously. This has been reported as suspicious for metastasis on the right frontal PET scan of 11/02/2018.
== END | disposition home or self-care (01) ==
LOC: RADCTMAIN 14:50
PROVIDERS: ATTEND Internal Medicine Hematology & Oncology
DX: K57.90 Diverticulosis of intestine, part unspecified, without perforation or abscess without bleeding (principal); J18.9 Pneumonia, unspecified organism; C50.911 Malignant neoplasm of unspecified site of right female breast; J43.9 Emphysema, unspecified; Z88.2 Allergy status to sulfonamides; Z91.09 Other allergy status, other than to drugs and biological substances
CPT/HCPCS: 82565; 84520; 71260; 74177; 36415; Q9967

== ENCOUNTER → 2019-08-15 | Outpatient (CLI) | payer MEDICARE, OTHER ==
[2019-08-15 08:50] LABS: African American GFR (CKD) >90 (>60 ml/min/1.73 sqM); Blood Urea Nitrogen 12 mg/dL (7-17); Non-African American GFR(CKD) 89 (>60 ml/min/1.73 sqM)
--- NOTE | 2019-08-15 11:27 | CT ---
EXAMINATION TYPE: CT abdomen pelvis w con DATE OF EXAM: 08/15/2019 COMPARISON: 04/24/2019 and 11/02/2018 HISTORY: 74-year-old female Follow up breast cancer. TECHNIQUE: Contiguous axial scanning of the abdomen and pelvis following administration of 100 ml Iso judith 300 IV contrast. Delayed images through the kidneys and coronal/sagittal reconstructions perform ed. CT DLP: 1234.8 mGycm Automated exposure control for dose reduction was used. FINDINGS: Chest reported separately. Liver borderline enlarged at 17.7 cm. No focal liver lesion. No biliary ductal dilatation. Portal cee ous system is patent. Cholecystectomy clips. Stable 1.5 cm right adrenal nodule. Redemonstrated thickening of the left adrenal gland up to 1.4 cm thick. Stable subcentimeter cortical cyst lateral right kidney. Tiny calcified granuloma within the spleen. Left kidney and pancreas shows no gross abnormality. Mild after describing calcifications throughout the abdominal aorta, more moderate in the infrarenal region and within the common iliac arteries. No mesenteric or retroperitoneal lymphadenopathy seen. Normal appendix. No dilated small bowel, free fluid, or free air. Scattered colonic diverticulosis ri ght hemicolon and sigmoid colon. Bladder urine distended. Uterus surgically absent. Suspect visualization of small ovaries. No abnorma l fluid collection in the pelvis or pelvic lymphadenopathy seen. Bones: Mild degenerative change at the hips. Advanced degenerative disc disease and hypertrophic face t arthropathy throughout the lumbar spine. Trace grade 1 retrolisthesis from L1 through L5 levels. Ex tensive associated endplate sclerosis throughout the lumbar spine. IMPRESSION: 1. STABLE THICKENING OF THE LEFT ADRENAL GLAND UP TO 1.4 CM., ALSO, STABLE 1.5 CM RIGHT ADRENAL NODUL E WHICH WAS NOTED TO BE INTENSELY HYPERMETABOLIC ON THE PATIENT'S 11/02/2018 PET/CT. 2. ADVANCED DEGENERATIVE CHANGES THROUGHOUT THE VISUALIZED LUMBAR SPINE. EXTENSIVE ASSOCIATED ENDPLAT E SCLEROSIS IS PRESENT. WE SEE THAT A NUCLEAR MEDICINE WHOLE BODY BONE SCAN HAS BEEN ORDERED. THIS WI LL BE HELPFUL IN ASSESSING FOR ANY POTENTIAL SCLEROTIC OSSEOUS LESIONS.
--- NOTE | 2019-08-15 11:42 | CT ---
EXAMINATION TYPE: CT angio chest DATE OF EXAM: 08/15/2019 COMPARISON: 04/24/2019 11/02/2018 HISTORY: 74-year-old female Follow up breast cancer. TECHNIQUE: Contiguous axial scanning of the chest performed with IV Contrast, patient injected with 1 00 mL of Isovue 370. Coronal/sagittal MIP reconstructions performed. CT DLP: 356.9 mGycm Automated exposure control for dose reduction was used. FINDINGS: Status post right mastectomy. A number of biopsy clips within the left breast. Heart borderline to mildly enlarged now without pericardial effusion. Aorta normal caliber with mild atherosclerotic arch calcifications. Satisfactory opacification of the pulmonary arterial system with mild breathing motion artifacts. No visualized pulmonary embolus. Some residual soft tissue thickening deep to the right parasternal border at the level of the left br achiocephalic vein, axial image 30, at the site of previous sesar involvement seen on 11/02/2018. 7 mm AP window lymph node previously measured 5 mm. 8 mm lower right paratracheal lymph node previously measured 6 mm. 1.1 cm left hilar lymph node axial image 67 is relatively similar. 9 mm right hilar lymph node, axial image 72 may be new. Otherwise, no thoracic lymphadenopathy by CT size criteria. Mild centrilobular emphysema. Numerous scattered calcified granulomas. Mild diffuse bronchial wall th ickening. Hazy dependent atelectasis posterior lung bases. No consolidation or pleural effusion. Abdomen reported separately. Bones: Moderate to advanced degenerative disc disease throughout. Sclerosis within the inferior third sternal body is unchanged but was not noted to be metabolic on the 11/02/2018 PET/CT. Nuclear medicin e bone scan could further evaluate. IMPRESSION: NO EVIDENCE FOR PULMONARY EMBOLUS. 1. STATUS POST RIGHT MASTECTOMY. 2. AP WINDOW, LOWER RIGHT PARATRACHEAL, AND RIGHT HILAR LYMPH NODES ARE NONENLARGED BUT SHOW SLIGHT I NCREASING SIZE FROM PRIOR EXAMS. THE 9 MM RIGHT HILAR LYMPH NODE IS NEW. FINDINGS MAY BE REACTIVE/POS T INFLAMMATORY. CLOSE FOLLOW-UP RECOMMENDED. 3. SOME MINIMAL RESIDUAL SOFT TISSUE THICKENING DEEP TO THE RIGHT PARASTERNAL MARGIN AT THE SITE OF P REVIOUS DISEASE INVOLVEMENT SEEN ON 11/02/2018. THE SOFT TISSUE DENSITY HERE MAY BE MINIMALLY INCREASE D FROM 04/24/2019. SCARRING IS POSSIBLE. AGAIN, CLOSE FOLLOW-UP RECOMMENDED TO REASSESS. 4. INFERIOR STERNAL SCLEROSIS WAS PRESENT ON 11/02/2018 BUT WAS NOT HYPERMETABOLIC. NUCLEAR MEDICINE W HOLE-BODY BONE SCAN CAN ASSESS FOR ANY SITES OF SUSPICIOUS OSSEOUS ACTIVITY. 5. COPD WITH MILD EMPHYSEMA AND PRIOR GRANULOMATOUS DISEASE.
--- NOTE | 2019-08-15 13:00 | NM ---
EXAMINATION TYPE: NM bone scan whole body DATE OF EXAM: 08/15/2019 COMPARISON: CT scan 08/15/2019 HISTORY: Breast cancer Delayed whole-body scanning was performed following the injection of 22.4 mCi Tc 99m MDP. Images acq uired 3.5 hours post injection. FINDINGS: There is abnormal uptake throughout the thoracic and lumbar spine which is nonspecific. Abnormal uptake involving the knees, ankles, feet and shoulders likely post arthritic. Abnormal uptake involving the mandible likely related to periodontal disease. Abnormal uptake involving the lower margin of the sternum. IMPRESSION: 1. There is intense abnormal uptake involving the lower lumbar spine. Etiology is complicated there i s severe degenerative disc disease with vacuum disc and recent CT scan with endplate sclerosis which suggests most likely related to discogenic marrow changes. However, there is abnormal uptake involvin g the sternum which correlates with the CT finding of sclerosis which is suspicious for metastases.
== END | disposition home or self-care (01) ==
LOC: RADCTMAIN 08:01
PROVIDERS: ATTEND Internal Medicine Hematology & Oncology
DX: E27.8 Other specified disorders of adrenal gland (principal); Z90.11 Acquired absence of right breast and nipple; R91.8 Other nonspecific abnormal finding of lung field; J43.9 Emphysema, unspecified; C50.911 Malignant neoplasm of unspecified site of right female breast
CPT/HCPCS: 82565; 84520; 71275; 74177; 36415; 78306; A9503; Q9967

== ENCOUNTER → 2019-11-15 | Day surgery (SDC) | payer MEDICARE, OTHER ==
--- NOTE | 2019-11-18 06:30 | PE ---
EXAMINATION TYPE: PET CT fusion skull to thigh DATE OF EXAM: 11/15/2019 COMPARISON: Whole-body CT August 15, 2019 and older CTs. PET/CT November 02, 2018. HISTORY: Breast cancer right sided progress study. TECHNIQUE: Following the intravenous administration of 8.463 mCi of F-18 FDG, whole body images are performed from the skull base to the midthigh. Images are reviewed on the computer in the coronal, a xial, and sagittal planes. Reconstructed rotating images are created on independent workstation and reviewed on the computer. A noncontrast CT is performed in conjunction with the PET scan. SCAN: Subsequent Scan FINDINGS: SKULL BASE AND NECK: No new areas of suspicious hypermetabolic uptake. CHEST, MEDIASTINUM, AND HILAR REGION: No new areas of suspicious hypermetabolic uptake. No abnormal h ypermetabolic uptake in the right axillary lymph nodes on current study or high medial internal mamma ry lymph nodes seen on prior PET/CT. ABDOMEN AND PELVIS: Stable size hypermetabolic right adrenal mass measuring 2.0 x 1.3 cm axial image 133. The max SUV is 9.09 on current study. No new areas of suspicious for metabolic uptake. Mild diff use liver uptake on current study. Normal excretion is present. OSSEOUS STRUCTURES: No new areas of suspicious hypermetabolic uptake. OTHER CT: There are benign calcified granulomatous changes of the lungs on background mild emphysemat ous changes redemonstrated. Some calcified mediastinal lymph nodes that are not enlarged are from baltazar or granulomatous change. Right-sided mastectomy changes redemonstrated. Calcified benign granulomas are also seen within the liver. Cholecystectomy is free demonstrated. Pun ctate benign granulomas of the spleen. Scattered diverticula throughout the colon are redemonstrated most pronounced in the sigmoid colon. Uterus surgically absent or markedly atrophic Multilevel [id number] disc space narrowing in the lumbar spine is present. Greatest L4-L5 lev el. Multilevel spondylolisthesis. IMPRESSION: No new areas of abnormal hypermetabolic uptake to suggest active malignancy. Resolved abn ormal hypermetabolic uptake in the right axillary subcentimeter lymph nodes and right internal mammar y chain lymph nodes. Improvement max SUV in the right adrenal metastatic lesion.
== END ==
LOC: RADPROMAIN 09:47
PROVIDERS: ATTEND Surgery
DX: C50.911 Malignant neoplasm of unspecified site of right female breast (principal); C79.71 Secondary malignant neoplasm of right adrenal gland
CPT/HCPCS: 78815; A9552

== ENCOUNTER → 2021-04-12 | Outpatient (CLI) | payer MEDICARE, OTHER ==
[2021-04-12 11:15] LABS: African American GFR (CKD) >90 (>60 ml/min/1.73 sqM); Blood Urea Nitrogen 18 mg/dL (7-17); Non-African American GFR(CKD) >90 (>60 ml/min/1.73 sqM)
--- NOTE | 2021-04-12 12:50 | CT ---
EXAMINATION TYPE: CT ChestAbdPelvis w con DATE OF EXAM: 04/12/2021 COMPARISON: 11/04/2020 HISTORY: Obs mets, Breast Cancer CT DLP: 1532 mGycm CONTRAST: CT scan of the chest, abdomen and pelvis is performed with Oral Contrast and with IV Contrast, patien t injected with 100 ml mL of Isovue 300. CT Chest: LUNGS: Granuloma right upper lobe. The lungs are clear and free of infiltrate or atelectasis. No pul monary nodule or mass is detected. No pleural effusion or CT evidence of interstitial lung disease. MEDIASTINUM: Thoracic aorta is of normal caliber. The heart is not enlarged. No evidence for media stinal mass or adenopathy. HILAR STRUCTURES: No evidence for mass. No hilar adenopathy is appreciated. OTHER: No significant abnormality. CONTRAST CT ABDOMEN AND PELVIS FINDINGS: LIVER/GB: The gallbladder surgically absent. There is evidence of hepatic steatosis. No space occupyi ng hepatic lesion. Biliary tree is of normal caliber. PANCREAS: No inflammation. No distinct mass. SPLEEN: No splenic enlargement. Stable splenic hemangioma. ADRENALS: No nodule. No thickening. KIDNEYS/BLADDER: No hydronephrosis. No nephrolithiasis. No distinct renal mass. BOWEL: Normal appendix. Normal bowel caliber. No inflammation. Sigmoid diverticulosis without diver ticulitis. GENITAL ORGANS: No gross abnormality. LYMPH NODES: No greater than 1cm abdominal or pelvic lymph nodes are appreciated. AORTA: No significant abnormality. OSSEOUS STRUCTURES: Severe multilevel degenerative disc disease and spondylosis. OTHER: No significant additional abnormality is seen. IMPRESSION: 1. No CT evidence to suggest metastatic disease at this time.
--- NOTE | 2021-04-12 14:46 | NM ---
EXAMINATION TYPE: NM bone scan whole body DATE OF EXAM: 04/12/2021 COMPARISON: 11/04/2020 bone scan, CT scan 04/12/2021 HISTORY: History of malignancy Delayed whole-body scanning was performed following the injection of 23 mCi Tc 99m MDP. Images acqui red 3 hours post injection. FINDINGS: There is intense abnormal uptake involving the left shoulder. There is abnormal uptake throughout the thoracic and lumbar spine similar to prior exam. Abnormal uptake involving ankles and knees and right shoulder likely post arthritic. Findings similar to prior exam. IMPRESSION: 1. Intense abnormal uptake involving the left shoulder is nonspecific and similar to the prior exam c ould be post arthritic correlate with x-ray as clinically warranted. 2. Stable appearing uptake throughout the vertebral column likely in the basis of severe degenerative disc disease demonstrated by recent CT scan.
== END | disposition home or self-care (01) ==
LOC: RADNMMAIN 09:57
PROVIDERS: ATTEND Internal Medicine Hematology & Oncology
DX: C50.911 Malignant neoplasm of unspecified site of right female breast (principal); Z17.0 Estrogen receptor positive status [ER+]; R93.7 Abnormal findings on diagnostic imaging of other parts of musculoskeletal system
CPT/HCPCS: 82565; 84520; 71260; 74177; 78306; 36415; A9503; Q9967

== ENCOUNTER → 2021-05-20 | Outpatient (CLI) | payer MEDICARE, OTHER ==
--- NOTE | 2021-05-20 11:15 | BD ---
EXAMINATION TYPE: Axial Bone Density DATE OF EXAM: 05/20/2021 COMPARISON: NONE CLINICAL HISTORY: 75 year old Female. ICD-10 CODE: C50.911 breast cancer Z79.890 hormone replacemen t Height: 60 Weight: 170.1 FRAX RISK QUESTIONS: Alcohol (3 or more units per day): no Family History (Parent hip fracture): no Glucocorticoids (More than 3mos): no (Ex: prednisone, prednisolone, methylprednisolone, dexamethasone, and hydrocortisone). History of Fracture in Adulthood: no Secondary Osteoporosis: 1. Type 1 Diabetes: no 2. Hyperthyroidism: no 3. Menopause before 45: yes 4. Malnutrition: no 5. Chronic liver disease: no Rheumatoid Arthritis: yes Current Tobacco Use: yes RISK FACTORS HISTORY OF: Surgery to Spine/Hip(right/left)/Wrist (right/left): no Family History of Osteoporosis: no Active: no Diet low in dairy products/other sources of calcium: yes Postmenopausal woman: yes Lost more than 2 inches in height since high school: yes Adrenal Insufficiency: adrenal cancer right side MEDICATIONS: Additional History: adrenal cancer right kidney EXAM MEASUREMENTS: Bone mineral densitometry was performed using the [employer] System. Bone mineral density as measured about the Lumbar spine is: ----- L1-L4(G/cm2): 1.747 T Score Values are as follows: ----- L1: 3.0 ----- L2: 4.4 ----- L3: 4.5 ----- L4: 6.3 ----- L1-L4: 4.7 Bone mineral density has: decreased -4.2 % since study of: 12.13.2018 Bone mineral density about the R hip (g/cm2): 0.907 Bone mineral density about the L hip (g/cm2): 0.883 T Score values are as follows: -----R Neck: -0.9 -----L Neck: -1.1 -----R Total: -0.3 -----L Total: -0.1 Bone mineral density has: decreased -1.2 % since study of: 12.13.2018 FRAX %: The graph provided illustrates a 9.5% chance for a major osteoporotic fx and a 2.2% chance fo r the hips probability for fx in 10 years time. IMPRESSION: No evidence for osteoporosis or osteopenia at this time. NOTE: T-SCORE=SD OF THE YOUNG ADULT MEAN.
== END | disposition home or self-care (01) ==
LOC: RADBDWWP 10:21
PROVIDERS: ATTEND Internal Medicine Hematology & Oncology
DX: C50.911 Malignant neoplasm of unspecified site of right female breast (principal); Z79.890 Hormone replacement therapy; Z78.0 Asymptomatic menopausal state
CPT/HCPCS: 77080

== ENCOUNTER → 2021-10-19 | Outpatient (CLI) | payer MEDICARE, OTHER ==
[2021-10-19 08:51] LABS: African American GFR (CKD) >90 (>60 ml/min/1.73 sqM); Blood Urea Nitrogen 22 mg/dL (7-17); Non-African American GFR(CKD) 86 (>60 ml/min/1.73 sqM)
--- NOTE | 2021-10-19 11:17 | CT ---
EXAMINATION TYPE: CT ChestAbdPelvis w con CT DLP: 1187.4 mGycm, Automated exposure control for dose reduction was used. DATE OF EXAM: 10/19/2021 10:35 AM COMPARISON: CT 04/12/2021, PET 11/15/2019 CLINICAL INDICATION:Female, 76 years old with history of C50.911 Breast CA;Breast cancer Technique: Multiple axial images of the chest, abdomen, and pelvis were obtained. Two-dimensional cor onal and sagittal reconstructions were obtained. Contrast used:100 mL of Isovue 300 with IV Contrast, Oral contrast used: with Oral Contrast Findings: CHEST: LUNGS/ PLEURA: Scattered calcified granulomas are present. There is peripheral reticulation most pron ounced along the edges. No suspicious pulmonary nodules. No focal consolidation, pneumothorax or pleu ral effusion. AIRWAY: Patent and unremarkable. HEART: Heart is mildly enlarged for size. There is mild atherosclerosis of the coronary arteries. MEDIASTINUM: No gross evidence of adenopathy. VASCULATURE: No aortic aneurysm. MUSCULOSKELETAL: No acute osseous abnormalities. SOFT TISSUES/LYMPH NODES: The right breast is surgically absent LOWER NECK: No significant findings. ABDOMEN: ABDOMEN LIVER: Diffusely hypoattenuating parenchyma. GALLBLADDER AND BILE DUCTS: Unremarkable. PANCREAS: Unremarkable. SPLEEN: Stable enhancing splenic lesion measuring 12 mm likely representing hemangioma. ADRENAL GLANDS: Stable right adrenal nodular thickening. Left adrenal gland is unremarkable. KIDNEYS AND URETERS: No evidence of hydronephrosis or renal calculus. The ureters are unremarkable. PELVIS BLADDER: Unremarkable REPRODUCTIVE: The uterus is surgically absent. ABDOMEN & PELVIS STOMACH AND BOWEL: Stomach and duodenum are unremarkable. Scattered diverticula are noted throughout the colon. No evidence of bowel obstruction. PERITONEUM: No evidence of pneumoperitoneum or free fluid. VASCULATURE: Mild atherosclerotic calcifications are present throughout the abdominal aorta and its b ranches. MUSCULOSKELETAL: No acute osseous abnormalities. Moderate disc degeneration changes are present throu ghout the thoracolumbar spine. There is multilevel disc space narrowing disc phenomenon osteophytes a nd facet joint arthropathy LYMPH NODES: No gross evidence for lymphadenopathy. SOFT TISSUE/ABDOMINAL WALL: Unremarkable IMPRESSION: 1. No evidence for metastatic disease or recurrence. 2. Hepatic steatosis 3. Colonic diverticulosis 4. Stable right adrenal nodule
== END | disposition home or self-care (01) ==
LOC: RADCTMAIN 08:10
PROVIDERS: ATTEND Internal Medicine Hematology & Oncology
DX: C50.911 Malignant neoplasm of unspecified site of right female breast (principal); K57.30 Diverticulosis of large intestine without perforation or abscess without bleeding; E27.8 Other specified disorders of adrenal gland; K76.0 Fatty (change of) liver, not elsewhere classified
CPT/HCPCS: 82565; 84520; 71260; 74177; 36415; Q9967 ×2

== ENCOUNTER 2021-11-24 11:06 | Day surgery (SDC) | payer MEDICARE, OTHER ==
[~2021-11-24 11:06] MED LIST changes: -DEXAMETHASONE SOD PHOSPHATE 10 MG/ML 1 ML VIAL IV ONE; -HEPARIN SODIUM,PORCINE 5,000 UNIT/ML 1 ML VIAL SQ ONE; +LACTATED RINGERS 1,000 ML IV SCH; -LIDOCAINE 1% 20 ML VIAL (10MG/ML) FOR IV START INTRADERMA PRN; -MIDAZOLAM 2 MG/2 ML VIAL IV PRN; -ONDANSETRON 4 MG/2 ML VIAL IVP ONE; -Pre Op ABX Message 1 EACH MISC MISCELLANE ONE; -SCOPOLAMINE 1.5MG/72HR PATCH TRANSDERM ONE
[2021-11-24 11:56] VITALS: TEMP 98
[2021-11-24] MEDS ORDERED: PROPOFOL 10 MG/ML 20 ML VIAL IV ONE (12:29)
[2021-11-24] MEDS ORDERED: LIDOCAINE 2% INJ 20 MG/ML (2 ML VIAL) ONE (12:29)
--- NOTE | 2021-11-24 12:42 | P.PCN ---
Date of Procedure: 11/24/21 Procedure(s) Performed: BRIEF HISTORY: Patient is a 76-year-old, pleasant, white female scheduled for an upper endoscopy as a part of evaluation of epigastric pain and history of GERD. She is currently on omeprazole 20 mg twice daily and still remains symptomatic. Hence scheduled for an upper endoscopy to evaluate further.. PROCEDURE PERFORMED: Esophagogastroduodenoscopy with biopsy. PREOPERATIVE DIAGNOSIS: Chronic epigastric pain. IV sedation per anesthesia. PROCEDURE: After informed consent was obtained, the patient was brought into the endoscopy unit. IV sedation was administered by Anesthesia under continuous monitoring. Initially the Olympus GIF-140 video endoscope was inserted into the mouth. Esophagus intubated without any difficulty. It was gradually advanced into the stomach and duodenum and carefully examined. The bulb and the second part of the duodenum appeared normal. The second part of the duodenum there was a 6-7 mm submucosal polyp noted which was biopsied. The scope at this time was withdrawn to the stomach, adequately insufflated with air, and upon careful examination, mucosa of the antrum, had mild gastritis and biopsies were done from this area. The body, cardia and the fundus appeared normal. The scope was then withdrawn into the esophagus. The GE junction was located at 39 cm from the incisors. The esophagus appeared normal. There were no erosions or ulcerations seen , biopsies were done from the distal esophagus. and the patient tolerated the procedure well. IMPRESSION: 1. 6 mm duodenal polyp status post biopsy. 2. Mild antral gastritis. 3. Normal-appearing esophagus with no evidence of esophagitis or Merritt's esophagus RECOMMENDATIONS: The findings of this examination were discussed with the patient as well as her family. She was advised to follow with the biopsy results. She'll continue with omeprazole 20 mg twice daily and follow antireflux measures. She'll be seen in office in 3-4 weeks..
[2021-11-24 13:07] VITALS: BP 157/83; PULSE 78; RESP 16
== END 2021-11-24 13:23 | disposition home or self-care (01) ==
LOC: ORWHC2ENDO 11:06
PROVIDERS: ATTEND Internal Medicine Gastroenterology
DX: K29.50 Unspecified chronic gastritis without bleeding (principal); K31.7 Polyp of stomach and duodenum; I25.10 Atherosclerotic heart disease of native coronary artery without angina pectoris; I10 Essential (primary) hypertension; E78.5 Hyperlipidemia, unspecified; J45.909 Unspecified asthma, uncomplicated; F17.200 Nicotine dependence, unspecified, uncomplicated; F41.9 Anxiety disorder, unspecified; M19.90 Unspecified osteoarthritis, unspecified site; R56.9 Unspecified convulsions; Z85.3 Personal history of malignant neoplasm of breast; Z85.42 Personal history of malignant neoplasm of other parts of uterus; Z86.73 Personal history of transient ischemic attack (TIA), and cerebral infarction without residual deficits; Z79.899 Other long term (current) drug therapy
CPT/HCPCS: 88305; 43239; J2704; J2001

== ENCOUNTER → 2023-02-13 | Outpatient (CLI) | payer MEDICARE, OTHER ==
[2023-02-13 10:30] LABS: African American GFR (CKD) >90 (>60 ml/min/1.73 sqM); Blood Urea Nitrogen 12 mg/dL (7-17); Non-African American GFR(CKD) >90 (>60 ml/min/1.73 sqM)
--- NOTE | 2023-02-16 12:48 | CT ---
EXAMINATION TYPE: CT ChestAbdPelvis w con DATE OF EXAM: 02/13/2023 INDICATION: breast cancer COMPARISON: 04/11/2022 CT DLP: 900.8 mGycm CONTRAST: Performed with Oral Contrast and with IV Contrast, patient injected with 100 mL of Isovue 300. TECHNIQUE: Axial images at 5 mm thick sections. Reconstructed images in the coronal plane. Delayed images through the kidneys. FINDINGS: CT CHEST: Portion of the thyroid visualized is normal. No suspicious lung nodules or focal infiltrates are present.r there is a calcification in the periphe ry of the right upper lobe measuring 0.7 cm. There is a left posterior medial lower lobe calcificatio n measuring 0.7 cm. No enlarged mediastinal or hilar adenopathy is evident. The ascending aorta diameter at the level of the main pulmonary artery is 3.2 cm. The main pulmonary artery diameter at the bifurcation is 2.[address] ABDOMEN: Liver: Normal Spleen: There is a 1.0 cm area of enhancement within the inferior portion of the spleen. This was pre sent previously and appear stable. Pancreas: Normal Adrenal glands: Right adrenal gland is thickened measuring 1.4 cm. This may be enhancing. Left adrena l gland has mild diffuse thickening without enhancement measuring 1.1 cm. Findings are stable over th e interval. Gallbladder: Normal Kidneys: No masses are evident. No hydronephrosis is present. No cysts are present. Delayed images were obtained through the kidneys, which remain unremarkable. Aorta: Vascular calcification is within the aorta. Inferior vena cava: Normal. CT PELVIS: Loops of bowel within the abdomen and pelvis are normal. Diverticulosis without acute diverticulitis is to the sigmoid colon. There are loops of bowel which are incompletely distended or lack oral co ntrast limiting their evaluation. Appendix: Normal as visualized. Urinary bladder: Normal. Genitourinary structures: Uterus and ovaries are not identified. Osseous structures: No suspicious lytic or sclerotic lesions are evident. IMPRESSION: 1. No suspicious changes to suggest metastatic neoplasm. 2. Stable appearing adrenal gland thickening 3. Diverticulosis without acute diverticulitis
== END | disposition home or self-care (01) ==
LOC: RADCTMAIN 09:36
PROVIDERS: ATTEND Internal Medicine Hematology & Oncology
DX: C50.911 Malignant neoplasm of unspecified site of right female breast (principal); K57.30 Diverticulosis of large intestine without perforation or abscess without bleeding; E27.8 Other specified disorders of adrenal gland; J39.8 Other specified diseases of upper respiratory tract; I10 Essential (primary) hypertension; R56.9 Unspecified convulsions; R06.02 Shortness of breath; Z17.0 Estrogen receptor positive status [ER+]; Z71.3 Dietary counseling and surveillance
CPT/HCPCS: 82565; 84520; 71260; 74177; 36415; Q9967

== ENCOUNTER → 2023-05-29 | Outpatient (CLI) | payer MEDICARE, OTHER ==
--- NOTE | 2023-06-02 13:21 | BD ---
EXAMINATION TYPE: Axial Bone Density DATE OF EXAM: 05/29/2023 CLINICAL HISTORY: 77 years old Female. ICD-10 CODE: C50.911 BREAST CANCER Height: 59 Weight: 161.2 FRAX RISK QUESTIONS: Alcohol (3 or more units per day): no Family History (Parent hip fracture): no Glucocorticoids (More than 3mos): no History of Fracture in Adulthood: Ribs Secondary Osteoporosis: 1. Type 1 Diabetes: no 2. Hyperthyroidism: no 3. Menopause before 45: no 4. Malnutrition: no 5. Chronic liver disease: no Rheumatoid Arthritis: no Current Tobacco Use: yes RISK FACTORS HISTORY OF: Hip Fracture (Right/Left): no Spine Fracture: no History of Wrist Fracture: no Surgery to Spine/Hip(right/left)/Wrist (right/left): no MEDICATIONS: Thyroid Medications: no Osteoporosis Medications:no EXAM MEASUREMENTS: Bone mineral densitometry was performed using the [employer] System. Bone mineral density as measured about the Lumbar spine is: ----- L1-L4(G/cm2): 1.658 T Score Values are as follows: ----- L1: 2.4 ----- L2: 3.5 ----- L3: 3.4 ----- L4: 6.0 ----- L1-L4: 4.0 Z Score Values are as follows: ----- L1: 3.9 ----- L2: 5.0 ----- L3: 4.9 ----- L4: 7.5 ----- L1-L4: 5.5 Bone mineral density has: decreased -5.1 % since study of: 05/20/21 Bone mineral density about the R hip (g/cm2): 1.009 Bone mineral density about the L hip (g/cm2): 0.979 T Score values are as follows: -----R Neck: -1.1 -----L Neck: -1.3 -----R Total: 0.0 -----L Total: -0.2 Z Score values are as follows: -----R Neck: 0.7 -----L Neck: 0.5 -----R Total: 1.6 -----L Total: 1.4 Bone mineral density has: decreased -3.5 % since study of: 05/20/2021 FRAX%s: The graph provided illustrates a 10.6% chance for a major osteoporotic fx and a 3.0% chance f or the hips probability for fx in 10 years time. IMPRESSION: Osteopenia (T Score between -2.5 and -1). There is slightly increased risk of fracture and the patient may be considered for treatment. Re-Screen 2-5 years. NOTE: T-SCORE=SD OF THE YOUNG ADULT MEAN.
== END | disposition home or self-care (01) ==
LOC: RADBDWWP 15:42
PROVIDERS: ATTEND Internal Medicine Hematology & Oncology
DX: C50.911 Malignant neoplasm of unspecified site of right female breast (principal); M85.89 Other specified disorders of bone density and structure, multiple sites; J45.998 Other asthma; I10 Essential (primary) hypertension; Z17.0 Estrogen receptor positive status [ER+]; R56.9 Unspecified convulsions; J39.8 Other specified diseases of upper respiratory tract; E78.00 Pure hypercholesterolemia, unspecified
CPT/HCPCS: 77080

== ENCOUNTER → 2023-08-24 | Outpatient (CLI) | payer MEDICARE, OTHER ==
[2023-08-24 12:30] LABS: African American GFR (CKD) >90 (>60 ml/min/1.73 sqM); Blood Urea Nitrogen 14 mg/dL (7-17); Non-African American GFR(CKD) 88 (>60 ml/min/1.73 sqM)
--- NOTE | 2023-08-26 21:35 | CT ---
EXAMINATION TYPE: CT ChestAbdPelvis w con DATE OF EXAM: 08/24/2023 INDICATION: breast cancer stage 4 COMPARISON: 02/13/2023 CT DLP: 1655 mGycm CONTRAST: Performed with Oral Contrast and with IV Contrast, patient injected with 100ml mL of Isovue 300. TECHNIQUE: Axial images at 5 mm thick sections. Reconstructed images in the coronal plane. Delayed images through the kidneys. FINDINGS: CT CHEST: Portion of the thyroid visualized is normal. There is a 0.6 cm nodular density posterior lateral right upper lung field. Series 4 image 18. There is a 0.6 cm nodular density within the medial left lung base measuring 0.6 cm. Series 4 image 43. Fin dings are compatible with calcified granuloma present previously. No enlarged mediastinal or hilar adenopathy is evident. No suspicious axillary adenopathy. There is b een prior right mastectomy. The ascending aorta diameter at the level of the main pulmonary artery is 3.2 cm. The main pulmonary artery diameter at the bifurcation is 2.[address] ABDOMEN: Liver: Normal Spleen: Normal Pancreas: Normal Adrenal glands: Right adrenal gland is somewhat thickened at 1.4 cm. Left adrenal gland appears bri l. Gallbladder: Surgically absent. Kidneys: No masses are evident. No hydronephrosis is present. No cysts are present. Delayed images were obtained through the kidneys, which remain unremarkable. No other appears to be a 0.4 cm nonobs tructing renal stone inferior pole left kidney. Aorta: Vascular calcification is within the aorta. Inferior vena cava: Normal. CT PELVIS: Loops of bowel within the abdomen and pelvis are normal. Diverticula are through the sigmoid colon. Mild wall thickening is not excluded. This can be due to incomplete distention however. There are lo ops of bowel which are incompletely distended or lack oral contrast limiting their evaluation. Appendix: Normal as visualized. Urinary bladder: Normal. Genitourinary structures: Uterus and ovaries are not identified. Osseous structures: No suspicious lytic or sclerotic lesions. IMPRESSION: 1. Diverticulosis. No acute diverticulitis is evident. There is incomplete distention of the sigmoid colon. Consider colonoscopy as clinically appropriate. 2. Mild thickening of the right adrenal gland appears similar to prior.
== END | disposition home or self-care (01) ==
LOC: RADCTMAIN 11:14
PROVIDERS: ATTEND Internal Medicine Hematology & Oncology
DX: C50.911 Malignant neoplasm of unspecified site of right female breast (principal); K57.90 Diverticulosis of intestine, part unspecified, without perforation or abscess without bleeding; E78.00 Pure hypercholesterolemia, unspecified; J45.998 Other asthma; I10 Essential (primary) hypertension; R56.9 Unspecified convulsions; J39.8 Other specified diseases of upper respiratory tract; Z17.0 Estrogen receptor positive status [ER+]
CPT/HCPCS: 82565; 84520; 71260; 74177; 36415; Q9967

== ENCOUNTER → 2024-03-18 | Outpatient (CLI) | payer MEDICARE ==
[2024-03-18 10:48] LABS: African American GFR (CKD) >90 (>60 ml/min/1.73 sqM); Blood Urea Nitrogen 14 mg/dL (7-17); Non-African American GFR(CKD) 89 (>60 ml/min/1.73 sqM)
--- NOTE | 2024-03-18 14:46 | CT ---
EXAMINATION TYPE: CT ChestAbdPelvis w con DATE OF EXAM: 03/18/2024 12:00 PM COMPARISON: CT chest 08/24/2023 CLINICAL INDICATION: Female, 78 years old with history of C50.911 breast ca, f/u breast ca TECHNIQUE: Axial images at 5 mm thick sections. Reconstructed images in the coronal plane. Delayed images through the kidneys. Contrast used:100 mL of Isovue 300 with IV Contrast, (none if empty) Oral contrast used: with Oral Contrast (none if empty) CT DLP: 1216.1 mGycm, Automated exposure control for dose reduction was used. FINDINGS: CT CHEST: Portion of the thyroid visualized is normal. No suspicious lung nodules or focal infiltrates are present. There is a calcification in the posterio r lateral right upper lung field. Image 16. No enlarged mediastinal or hilar adenopathy is evident. The ascending aorta diameter at the level of the main pulmonary artery is 3.1 cm. The main pulmonary artery diameter at the bifurcation is 2.[address] ABDOMEN: Liver: There may be some minimal fatty infiltration of the liver. Spleen: There is an area 1.1 cm enhancement in the inferior spleen. Pancreas: Normal Adrenal glands: There is a hyperdense nodule post contrast in the right adrenal gland measuring 1.4 c m. Left adrenal gland has some minimal diffuse thickening. These are minimally more prominent than th e comparison study. Gallbladder: Surgically absent Kidneys: No masses are evident. No hydronephrosis is present. No cysts are present. Delayed images were obtained through the kidneys, which remain unremarkable. Aorta: Vascular calcification is within the aorta. Inferior vena cava: Normal. CT PELVIS: Loops of bowel within the abdomen and pelvis are normal. Diverticular changes are within the sigmoid colon. No adjacent inflammatory changes to suggest acute diverticulitis. There are loops of bowel which are incompletely distended or lack oral contrast limiting their evaluation. Appendix: Normal as visualized. Urinary bladder: Normal. Genitourinary structures: Uterus and ovaries are not identified. Osseous structures: No suspicious lytic or sclerotic lesions. IMPRESSION: 1. Diverticulosis without acute diverticulitis sigmoid colon. 2. Minimal increasing thickness of the adrenal glands discussed above. 3. Enhancing 1.1 cm area within the inferior spleen [facility], Workstation: [id number], 03/18/2024 2:44 PM
== END | disposition home or self-care (01) ==
LOC: RADCTMAIN 09:25
PROVIDERS: ATTEND Internal Medicine Hematology & Oncology
DX: C50.911 Malignant neoplasm of unspecified site of right female breast (principal); I10 Essential (primary) hypertension; Z71.3 Dietary counseling and surveillance; Z71.0 Person encountering health services to consult on behalf of another person; J39.8 Other specified diseases of upper respiratory tract; R56.9 Unspecified convulsions; K57.30 Diverticulosis of large intestine without perforation or abscess without bleeding
CPT/HCPCS: 82565; 84520; 71260; 74177; 36415; Q9967

== ENCOUNTER → 2024-09-17 | Outpatient (CLI) | payer MEDICARE ==
[2024-09-17 11:07] LABS: African American GFR (CKD) >90 (>60 ml/min/1.73 sqM); Blood Urea Nitrogen 10 mg/dL (7-17); Non-African American GFR(CKD) 88 (>60 ml/min/1.73 sqM)
--- NOTE | 2024-09-17 14:49 | CT ---
EXAMINATION TYPE: CT ChestAbdPelvis w con DATE OF EXAM: 09/17/2024 12:23 PM COMPARISON: 03/18/2024 CLINICAL INDICATION: Female, 79 years old with history of C50.911 MALIGNANT NEOPLASM OF UNSP SITE OF RIGHT FEMALE CAYLA; PHH, malignant neoplasm of unsp site Technique: CT of the chest, abdomen, and pelvis after IV contrast administration. Delayed images thro ugh the kidneys. Two-dimensional coronal and sagittal reconstructions were obtained. Contrast used:100ml mL of Isovue 300 with IV Contrast, Oral contrast used: with Oral Contrast CT DLP: 1651 mGycm, Automated exposure control for dose reduction was used. Findings: CHEST: Patient status post right mastectomy. Nonenlarged bilateral axillary lymph nodes remain unchanged. A borderline enlarged 1.1 cm left hilar lymph node is unchanged. Nonenlarged 7 mm partially calcified lower right paratracheal lymph node is unchanged. Heart upper limits of normal in size without pericardial effusion. Aorta normal caliber with mild atherosclerotic arch calcifications and conventional arch vessel branc rubi anatomy. Some strandy atelectasis or scarring at the lung bases. Calcified granuloma posterior left lower lobe and bilateral upper lobes. Mild emphysematous change. No consolidation or pleural effusion. ABDOMEN: Tiny hiatal hernia. Tiny calcified granuloma right liver lobe. No focal liver lesion. Portal venous s ystem is patent. No biliary ductal dilatation. Solid 1.9 cm right adrenal nodule remains unchanged. Mild diffuse thickening left adrenal gland also unchanged. Punctate 2 mm nonobstructive right renal stone. Symmetric uptake and excretion of contrast from both kidneys. Spleen again shows a 1 cm enhancing focus at the lower pole, probably a small hemangioma. A few punct ate calcified granulomas in the spleen. Gallbladder surgically absent. Pancreas within normal limits. Moderate atherosclerotic calcifications infrarenal aorta and iliac arteries. No dilated small bowel, free fluid, or free air. No mesenteric or retroperitoneal lymphadenopathy. Normal appendix. Right-sided colonic diverticulosis. Additional diverticular changes lower descending and sigmoid colo n, extensive within the proximal to mid sigmoid colon. No pericolonic inflammatory change. PELVIS: Bladder partially distended. Uterus surgically absent. Ovaries not well seen. There is pelvic floor l axity. Tiny pelvic phleboliths. No abnormal fluid collection in the pelvis or pelvic lymphadenopathy. BONES: Advanced degenerative disc disease lower thoracic spine and throughout the lumbar spine. Hypertrophic facet arthropathy lumbar spine with degenerative grade 1 retrolisthesis L2-L3, L3-L4, L4-L5. No osse ous destructive process seen. IMPRESSION: 1. Patient status post right mastectomy. A borderline enlarged 1.1 cm left hilar lymph node is unchan ged. A 1.9 cm solid right adrenal nodule remains unchanged. A 1 cm enhancing focus at the lower pole of the spleen is also unchanged. Otherwise, no evidence for metastatic disease/disease progression. 2. 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 Tiny hiatal clara ia. Colonic diverticulosis without acute diverticulitis. [facility], Workstation: [email or web address], 09/17/2024 2:47 PM
== END | disposition home or self-care (01) ==
LOC: RADCTMAIN 10:18
PROVIDERS: ATTEND Internal Medicine Hematology & Oncology
DX: C50.911 Malignant neoplasm of unspecified site of right female breast (principal); J39.8 Other specified diseases of upper respiratory tract; R56.9 Unspecified convulsions; Z17.0 Estrogen receptor positive status [ER+]; Z90.11 Acquired absence of right breast and nipple; K44.9 Diaphragmatic hernia without obstruction or gangrene; K57.30 Diverticulosis of large intestine without perforation or abscess without bleeding
CPT/HCPCS: 82565; 84520; 71260; 74177; 36415; Q9967